=== PATIENT | male | born 1945 | race Caucasian/White ===

== ENCOUNTER → 2019-07-14 13:12 | Outpatient (CLI) | payer MEDICARE, SELFPAY ==
--- NOTE | ~2019-07-14 | XR_ITS ---
EXAMINATION: XR chest 2V EXAM DATE: 07/14/2019 13:22 INDICATION: Acute bronchitis for one month. TECHNIQUE: Frontal and lateral projections of the chest obtained and reviewed. There is no prior rachel dy for comparison. FINDINGS: Scattered punctate granulomata. The lungs are otherwise clear. There are no pleural effusi ons. The cardiomediastinal silhouette is within normal limits. There is no pneumothorax suspected. There is aortic arterial sclerosis. Mild thoracic spondylosis. There may be some left pleural calcif ication. IMPRESSION: No acute cardiopulmonary findings. Reviewed, dictated and finalized at location A.
== END ==
PROVIDERS: PCP Internal Medicine; Visit Provider Internal Medicine
DX: J20.9 Acute bronchitis, unspecified (principal)
CPT/HCPCS: 71046

== ENCOUNTER 2019-10-21 00:21 | Outpatient (CLI) | payer MEDICARE, SELFPAY ==
[2019-10-21 17:34] LABS: SARS-CoV-2 RNA PCR Negative
== END 2019-10-21 00:22 | disposition home or self-care (01) ==
LOC: ANHCOVIDDT 00:21
PROVIDERS: PCP Internal Medicine; Visit Provider Internal Medicine Gastroenterology
DX: Z01.818 Encounter for other preprocedural examination (principal); Z11.59 Encounter for screening for other viral diseases
CPT/HCPCS: 87635; C9803; U0003

== ENCOUNTER 2019-10-23 01:54 | Day surgery (SDC) | payer MEDICARE, SELFPAY ==
[2019-10-16 13:32] VITALS: BMI 23.3
[2019-10-23 06:45] VITALS: BP 101/70; PULSE 105; RESP 18; TEMP 36.6; O2SAT 98
[2019-10-23] MEDS: LACTATED RINGERS 1,000 ML 150 ML IV CONT (06:54)
--- NOTE | 2019-10-23 07:18 | WPDANESEPPF ---
Anes - Initial Pre Proc Eval Procedure: Operation Date: 10/23/19 08:00 Proposed Procedures p Screening Colonoscopy - Robe Martinez MD Date/Time: 10/23/19 07:18 Surgeon: Robe Martinez MD Pre Op Diagnosis: Hx Colon Polyps Patient Data Age: 74 Gender: M Height: 1.65 m Weight: 57.6 kg Last Vital Signs Temp 36.6 C 10/23/19 06:45 Pulse 105 H 10/23/19 06:45 Resp 18 10/23/19 06:45 BP 101/70 10/23/19 06:45 Pulse Ox 98 10/23/19 06:45 Allergies Allergy/AdvReac Type Severity Reaction Status Date / Time triprolidine Allergy Unknown unknown Verified 10/23/19 06:44 pseudoephedrine AdvReac Mild shortness Verified 10/23/19 06:44 of breathe Home Medications Medication Instructions Recorded Confirmed Type ergocalciferol (vitamin D2) 1,250 1,250 mcg PO WEEKLY 90 Days #13 cap 08/24/19 10/16/19 Rx mcg (50,000 unit) capsule levothyroxine 50 mcg tablet 50 mcg PO DAILY 90 Days #90 tablet 08/24/19 10/16/19 Rx pantoprazole 40 mg tablet,delayed 40 mg PO DAILY 90 Days #90 tablet 08/24/19 10/16/19 Rx release simvastatin 40 mg tablet 40 mg PO .in the evening 90 Days 08/24/19 10/16/19 Rx #90 tablet valsartan 160 1 tablet PO DAILY #90 tablet MDD 1 08/27/19 10/16/19 Rx mg-hydrochlorothiazide 12.5 mg tablet tablet Patient hx anesthesia problems: none Family hx anesthesia problems: none PMFSH Past Medical History Medical History (Updated 10/22/19 @ 10:52 by El Scales DO) Chronic GERD CKD (chronic kidney disease) COPD (chronic obstructive pulmonary disease) Essential (primary) hypertension Hyperlipidemia Hypothyroidism Social History Social History (System 07/15/19 @ 10:29 by Lilly Lema) Smoking status: Current every day smoker Second hand tobacco smoke exposure: No Alcohol intake: never Anes - Eval Final PreProcedure Day of Procedure 10/23/19 07:18 Patient weight: normal Heart: regular rate and rhythm Lungs: clear to auscultation and normal air movement Airway: Mallampati scale class II Neurological: alert and oriented Last oral intake: >/= 8 hours ASA classification: III Emergent: no Anesthetic plan: proceed Anesthesia type and monitoring: general GIVS and standard monitoring Informed Consent: The patient's anesthetic plan and its attendant risks and benefits were discussed with the patient/family/POA. Questions were solicited and answers provided to the satisfaction of the patient/family/POA.
--- NOTE | 2019-10-23 08:12 | WPDGICN ---
Assessment and Plan Assessment and plan (1) History of colon polyps: Code(s): Z86.010 - Personal history of colonic polyps Status: Acute Assessment and Plan: Patient has a history of adenomatous colon polyps. For this reason follow-up colonoscopy is advised at this time. Further recommendations will be given after endoscopy. Follow-up in 5 years is suggested. (2) Ventral hernia: Code(s): K43.9 - Ventral hernia without obstruction or gangrene Status: Acute Assessment and Plan: Patient has reducible hernia. Current plan is for observation. Should this become symptomatic than surgical therapy considered. GI Consult Note Consult date/time: 10/23/19 08:12 HPI: Song Land Jr. is a 74 year old male Seen in evaluation at the request of Dr. Candelario Griffin. Patient presents today for screening colonoscopy. Patient has a history of colon polyps in the past. Most recently 2013 at which time he had colonoscopy. Patient's current weight appetite bowel movements are normal. patient has a good appetite is weight has remained stable his he denies any blood in his stools. Family history is noncontributory. Review of Systems Review of Systems: All systems reviewed & are unremarkable except as noted in HPI and below PMFSH Past Medical History Medical History Chronic GERD CKD (chronic kidney disease) COPD (chronic obstructive pulmonary disease) Essential (primary) hypertension Hyperlipidemia Hypothyroidism Social History Social History Smoking status: Current every day smoker Second hand tobacco smoke exposure: No Alcohol intake: never Meds Home Medications and Allergies Home Medications Medication Instructions Recorded Confirmed Type ergocalciferol (vitamin D2) 1,250 1,250 mcg PO WEEKLY 90 Days #13 cap 08/24/19 10/16/19 Rx mcg (50,000 unit) capsule levothyroxine 50 mcg tablet 50 mcg PO DAILY 90 Days #90 tablet 08/24/19 10/16/19 Rx pantoprazole 40 mg tablet,delayed 40 mg PO DAILY 90 Days #90 tablet 08/24/19 10/16/19 Rx release simvastatin 40 mg tablet 40 mg PO .in the evening 90 Days 08/24/19 10/16/19 Rx #90 tablet valsartan 160 1 tablet PO DAILY #90 tablet MDD 1 08/27/19 10/16/19 Rx mg-hydrochlorothiazide 12.5 mg tablet tablet Allergies Allergy/AdvReac Type Severity Reaction Status Date / Time triprolidine Allergy Unknown unknown Verified 10/23/19 06:44 pseudoephedrine AdvReac Mild shortness Verified 10/23/19 06:44 of breathe Vital Signs Vital Signs - 24 hr 10/23/19 06:45 Temperature 36.6 C Pulse Rate 105 H Respiratory Rate 18 Blood Pressure 101/70 Pulse Oximetry 98 Exam Narrative: Exam Narrative: Physical exam reveals patient to be alert. Vital signs stable. HEENT exam unremarkable. Lungs are clear to auscultation and percussion. Heart is without murmur. Abdomen bowel sounds are present soft nontender a ventral hernia is evident. This reduces easily at this time. Digital external rectal exam normal.
[2019-10-23 08:36] VITALS: BP 77/36; PULSE 75; RESP 14; O2SAT 97
[2019-10-23 08:46] VITALS: BP 94/68; PULSE 82; RESP 14; O2SAT 97
[2019-10-23 08:56] VITALS: BP 108/74; PULSE 84; RESP 14; O2SAT 97
[2019-10-23 09:06] VITALS: BP 114/74; PULSE 85; RESP 14; O2SAT 97
== END 2019-10-23 09:26 | disposition home or self-care (01) ==
PROVIDERS: PCP Internal Medicine; Visit Provider Internal Medicine Gastroenterology
PROC: 0DJD8ZZ Inspection of Lower Intestinal Tract, Via Natural or Artificial Opening Endoscopic (ICD-10-PCS; CPT 45378; principal; 2019-10-23 08:00)
DX: Z12.11 Encounter for screening for malignant neoplasm of colon (principal); Z86.010 Personal history of colon polyps; K57.30 Diverticulosis of large intestine without perforation or abscess without bleeding; K64.8 Other hemorrhoids; K43.9 Ventral hernia without obstruction or gangrene; I12.9 Hypertensive chronic kidney disease with stage 1 through stage 4 chronic kidney disease, or unspecified chronic kidney disease; N18.9 Chronic kidney disease, unspecified; K21.9 Gastro-esophageal reflux disease without esophagitis; J44.9 Chronic obstructive pulmonary disease, unspecified; E78.5 Hyperlipidemia, unspecified; E03.9 Hypothyroidism, unspecified; F17.200 Nicotine dependence, unspecified, uncomplicated; Z79.899 Other long term (current) drug therapy
CPT/HCPCS: G0105; 87635; C9803; J2704; J7120; U0003

== ENCOUNTER 2019-11-20 14:46 | Outpatient (CLI) | payer MEDICARE, SELFPAY ==
--- NOTE | ~2019-11-20 | CT_ITS ---
EXAMINATION: CT abdomen pelvis wo/w con EXAM DATE: 11/20/2019 15:49 INDICATION: Hematuria. TECHNIQUE: Spiral CT of the abdomen and pelvis was performed without contrast. The patient was then injected with small bolus intravenous Omnipaque 350, followed by delay of approximately 10 minutes to allow collecting system to opacify. A post contrast scan abdomen and pelvis was performed during inj ection of remaining contrast. A total of 130 cc intravenous contrast was administered. The dose-michelle th product (DLP) for this examination was 552.30 mGy-cm. The exposure was tailored according to dinesh ent size (auto mA exposure control), and iterative reconstruction (ASIR) was used as additional dose reduction technique. There is no prior study for comparison. FINDINGS: There is a 1.2 cm right renal partially exophytic cyst. Lobular left liver lobe cyst measur ing 5.4 cm. The kidneys enhance symmetrically. There are no suspicious renal lesions. The calyces and opacified portions of ureters are unremarkable, without filling defects or focal suspicious stric tures. There is weblike linear nodular soft tissue filling defect at the bladder base projecting int o the bladder, portion of which is contiguous to the mildly enlarged prostate. This is atypical appea chiquis for transitional cell cancer but recommend correlation with cystoscopy for further evaluation. The liver, spleen, adrenal glands and pancreas are unremarkable. Gallbladder is unremarkable. No bi liary obstruction. There is no retroperitoneal or pelvic lymphadenopathy. There is extensive scatt ered arterial sclerotic disease. There is large upper abdominal midline containing nonobstructed loop of transverse colon. The appendix is normal. The stomach and small bowel are unremarkable. There is moderate scattered co lonic diverticulosis. There is no adjacent inflammatory change to suggest diverticulitis. There is e xpected amount of colonic stool. No free intraperitoneal gas. Small pericardial effusion. There i s moderate basilar emphysema. The lung bases are unremarkable. There are no osteoblastic or osteoly tic lesions identified. IMPRESSION: 1. Bladder base linear nodular weblike filling defect, could be trabeculation/scarring but recommend cystoscopy to exclude transitional cell cancer. 2. Large upper abdominal midline hernia containing nonobstructed transverse colon loop. 3. Moderate colonic diverticulosis. 4. Moderate emphysema. 5. Small pericardial effusion. Reviewed, dictated and finalized at location A. IMPRESSION: 1. Bladder base linear nodular weblike filling defect, could be trabeculation/ scarring but recommend cystoscopy to exclude transitional cell cancer. 2. Large upper abdominal midline hernia containing nonobstructed transverse co feliciano loop. 3. Moderate colonic diverticulosis. 4. Moderate emphysema. 5. Small pericardial effusion.
[2019-11-20 15:26] LABS: Estimated Glomerular Filt Rate > 60
== END 2019-11-20 14:47 | disposition home or self-care (01) ==
PROVIDERS: PCP Internal Medicine; Visit Provider Internal Medicine
DX: R31.9 Hematuria, unspecified (principal); K57.90 Diverticulosis of intestine, part unspecified, without perforation or abscess without bleeding; J43.9 Emphysema, unspecified; I31.3 Pericardial effusion (noninflammatory)
CPT/HCPCS: 36415; 74178; Q9967

== ENCOUNTER 2020-05-06 11:04 | Outpatient (CLI) | payer MEDICARE, SELFPAY ==
--- NOTE | ~2020-05-06 | XR_ITS ---
EXAMINATION: XR abdomen obstructive series DATE: 05/06/2020 11:33 INDICATION: Abdominal distention. TECHNIQUE: Supine and upright views of the abdomen. FINDINGS: No prior studies for comparison. The visualized lung parenchyma is normal.. There is a nonobstructive bowel gas pattern. Gas and stool are seen throughout the colon to the level of the rectum. There is no free air. There is advanced l umbar spondylosis with levoscoliosis. There is atherosclerosis of the aorta. There are scattered calc ified granulomas in the lung parenchyma. IMPRESSION: 1. No acute abdominal abnormality. Reviewed, dictated and finalized at location A. 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
--- NOTE | ~2020-05-06 | CT_ITS ---
EXAMINATION: CT lung screening DATE: 05/06/2020 11:43 INDICATION: Lung cancer screening TECHNIQUE: Computed tomography (CT) of the chest was performed without intravenous contrast. The dose -length product was 69.02 mGy-cm. Automated exposure control and iterative reconstruction technique w ere employed. COMPARISON: None FINDINGS: Small pericardial effusion. No significant pleural effusion. There is extensive atheroscler osis of the aorta and coronary arteries. No significant pleural effusion. There is a 5.8 cm liver cys t. There is a ventral abdominal wall hernia containing nonobstructed bowel. There are multiple bilate ral calcified granulomas. There is emphysema. There is a 6 mm subsolid 6 mm groundglass nodule left u pper lobe, image 47. There is a 4 mm fissural nodule on the right, image 78. There is a 7 mm some belinda id pleural-based nodule, image 41 there is adjacent pleural thickening. Mild thoracic spondylosis. Th ere are pleural calcifications in the left upper thorax. There is an 11 mm left lower lobe nodule, im age 82 with adjacent peribronchial nodularity. IMPRESSION: 1. Lung Rads category 4A, suspicious. Recommend follow-up low dose CT in 3 months or pet/CT. Reviewed, dictated and finalized at location A. GER PROGRAMMING IMPRESSION: 1. Lung Rads category 4A, suspicious. Recommend follow-up low dose CT in 3 yogesh hs or pet/CT.
== END 2020-05-06 11:05 | disposition home or self-care (01) ==
PROVIDERS: PCP Internal Medicine; Visit Provider Internal Medicine
DX: Z12.2 Encounter for screening for malignant neoplasm of respiratory organs (principal); R14.0 Abdominal distension (gaseous); Z87.891 Personal history of nicotine dependence; R91.8 Other nonspecific abnormal finding of lung field
CPT/HCPCS: 71271; 74019

== ENCOUNTER 2020-05-17 13:24 | Outpatient (CLI) | payer MEDICARE, SELFPAY ==
--- NOTE | ~2020-05-17 | PE_ITS ---
EXAMINATION: PET skull to mid thigh DATE: 05/17/2020 15:43 INDICATION: Pulmonary nodules. TECHNIQUE: Blood glucose level was 96 mg/dL. 9.788 mCi of 18-fluorodeoxyglucose (18-FDG) was administ ered i.v. Low dose computed tomography (CT) images were acquired from the base of the brain to the pr oximal thighs for attenuation correction and anatomic localization. Automated exposure control was em ployed. Dose-length product (DLP) was 266 mGy-cm. Positron emission tomography (PET) images were acqu ired in the same distribution. COMPARISON: Chest CT 05/06/2020 FINDINGS: Head/neck: There are no pathologically enlarged lymph nodes. Chest: There is mild emphysema. There is mild scarring at left lung apex. Calcified pulmonary nodules and calcified hilar and mediastinal lymph nodes are consistent with old granulomatous disease. There is a 4 mm nodule in right lower lobe without increased activity. There is a 2.4 x 1.5 cm nodule in l eft lower lobe with air bronchograms, architectural distortion, and bronchiectasis with maximum SUV o f 1.6. There are calcified pleural plaques on the left. There is a 7 mm pleural-based nodule in left upper lobe without increased activity. No pleural effusion. The heart size is normal. There are coron woody artery calcifications. There is a chronic small pericardial effusion. There is bulky calcified at herosclerosis in the proximal subclavian arteries and right common carotid artery. Abdomen/pelvis/proximal thighs: There is a 5.6 cm cyst in the liver. The gallbladder is normal. Calci fications in the spleen are consistent with old granulomatous disease. The pancreas, adrenal glands, and left kidney are normal. There is mild right hydronephrosis and hydroureter. There is a 1.6 cm cys t in right kidney. There is diffuse bladder wall thickening, likely secondary to chronic outlet obstr uction from the moderately enlarged prostate. There is diverticulosis of the colon without evidence o f diverticulitis. There are no dilated loops of bowel. There is a supraumbilical ventral hernia conta ining nonobstructed transverse colon. There is bulky calcified atherosclerosis in the common femoral arteries. There are no pathologically enlarged lymph nodes. There is no free intraperitoneal fluid. IMPRESSION: 1. Pulmonary nodules without increased activity, probably benign. Noncontrast low-dose chest CT is re commended in 6 months. 2. Mild right hydronephrosis and hydroureter, new from 11/20/2019. 3. Supraumbilical ventral hernia containing nonobstructed transverse colon. Reviewed, dictated and finalized at location B. UTIVE MANAGER IMPRESSION: 1. Pulmonary nodules without increased activity, probably benign. Noncontrast l ow-dose chest CT is recommended in 6 months. 2. Mild right hydronephrosis and hydroureter, new from 11/20/2019. 3. Supraumbilical ventral hernia containing nonobstructed transverse colon.
[2020-05-17 14:09] LABS: Glucose Point of Care 96 (65-105)
== END 2020-05-17 13:25 | disposition home or self-care (01) ==
LOC: ANHIMG 13:29
PROVIDERS: PCP Internal Medicine; Visit Provider Internal Medicine
DX: R91.8 Other nonspecific abnormal finding of lung field (principal); N13.30 Unspecified hydronephrosis; N13.4 Hydroureter; K43.9 Ventral hernia without obstruction or gangrene
CPT/HCPCS: 78815; A9552

== ENCOUNTER → 2020-06-23 00:52 | Outpatient (CLI) | payer MEDICARE, SELFPAY ==
[2020-06-23 20:38] LABS: SARS-CoV-2 RNA PCR Negative
== END ==
PROVIDERS: PCP Internal Medicine; Visit Provider Urology
DX: Z01.812 Encounter for preprocedural laboratory examination (principal); Z20.822 Contact with and (suspected) exposure to COVID-19
CPT/HCPCS: C9803; U0003; U0005

== ENCOUNTER 2020-06-23 10:20 | Outpatient (CLI) | payer MEDICARE, SELFPAY ==
--- NOTE | 2020-06-23 10:30 | ECG_ITS ---
Measurements Intervals [place] Rate: 91 P: 72 RI: 152 QRS: 67 QRSD: 97 T: 74 QT: 371 QTc: 457 Interpretive Statements SINUS RHYTHM INCOMPLETE RIGHT BUNDLE BRANCH BLOCK BASELINE ARTIFACT- I, II, III, AVR, AVL, AVF, V1-V6 BORDERLINE ECG Electronically Signed On 06-23-2020 11:06:28 WASH TEST CHECKER by Babar Kaufman D.O.
[2020-06-23 11:35] LABS: Anion Gap 3 mmol/L (8-16); Blood Urea Nitrogen 23 mg/dL (9-20); Calcium 8.5 mg/dL (8.4-10.2); Carbon Dioxide 35 mmol/L (22-30); Chloride 104 mmol/L (98-107); Estimated Glomerular Filt Rate > 60; Glucose 131 mg/dL (75-110); Potassium 2.8 mmol/L (3.4-5.0); Sodium 142 mmol/L (137-145)
== END 2020-06-23 10:21 | disposition home or self-care (01) ==
LOC: ANHSURGERY 10:21
PROVIDERS: Anesthesiology; PCP Internal Medicine; Visit Provider Urology
DX: Z01.812 Encounter for preprocedural laboratory examination (principal); I10 Essential (primary) hypertension; I45.10 Unspecified right bundle-branch block
CPT/HCPCS: 36415; 80048; 93005

== ENCOUNTER 2020-06-24 01:27 | Day surgery (SDC) | payer MEDICARE, SELFPAY ==
[2020-06-22 15:07] VITALS: BMI 21.6
[2020-06-24] VITALS (13 sets, daily range): BP systolic 143–183; BP diastolic 59–110; PULSE 78–108; RESP 14–20; TEMP 36.6–37; O2SAT 92–100
--- NOTE | ~2020-06-24 | XR_ITS ---
EXAMINATION: XR fluoroscopy no charge DATE: 06/24/2020 20:32 INDICATION: Hematuria. TECHNIQUE: A single intraoperative fluoroscopic view of the abdomen was obtained. I was not present. Fluoroscopy exposure time was 3 seconds. COMPARISON: PET/CT 05/17/2020 FINDINGS: There are no dilated loops of bowel. IMPRESSION: 1. Normal bowel gas pattern. Reviewed, dictated and finalized at location A. 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
--- NOTE | 2020-06-24 14:51 | WPDANESEPPF ---
Anes - Initial Pre Proc Eval Procedure: Operation Date: 06/24/20 12:30 Proposed Procedures p Cystoscopy, Bilateral Retrograde Pyelogram With Bladder Biopsy - Javier Yeung MD Date/Time: 06/24/20 14:51 Surgeon: Javier Yeung MD Pre Op Diagnosis: Hematuria Dysuria Patient Data Age: 75 Gender: M Height: 5 ft 5 in Weight: 58.97 kg Allergies Allergy/AdvReac Type Severity Reaction Status Date / Time triprolidine Allergy Unknown unknown Verified 06/24/20 14:50 pseudoephedrine AdvReac Mild shortness Verified 06/24/20 14:50 of breathe Home Medications Medication Instructions Recorded Confirmed Type finasteride 5 mg tablet 5 mg PO DAILY 12/28/19 06/22/20 History ergocalciferol (vitamin D2) 1,250 1,250 mcg PO WEEKLY 90 Days #13 cap 02/15/20 06/22/20 Rx mcg (50,000 unit) capsule levothyroxine 75 mcg tablet 75 mcg PO DAILY 90 Days #90 tablet 02/15/20 06/22/20 Rx pantoprazole 40 mg tablet,delayed 40 mg PO DAILY 90 Days #90 tablet 02/15/20 06/22/20 Rx release simvastatin 40 mg tablet 40 mg PO QPM 90 Days #90 tablet 02/15/20 06/22/20 Rx valsartan 160 1 tablet PO DAILY #90 tablet MDD 1 02/15/20 06/22/20 Rx mg-hydrochlorothiazide 12.5 mg tablet tablet Patient hx anesthesia problems: none Family hx anesthesia problems: none PMFSH Past Medical History Medical History BPH NOS w ur obs/LUTS Chronic GERD CKD (chronic kidney disease) COPD (chronic obstructive pulmonary disease) Essential (primary) hypertension Hyperlipidemia Hypothyroidism Structural abnormality of bladder Social History Social History Smoking packs per day: 1 Smoking cigarettes per day: 20.0 Years smoked: 50 Smoking pack-years: 50.00 Smoking status: Current every day smoker Tobacco type: cigarettes Second hand tobacco smoke exposure: No Alcohol intake: never Living arrangements: with family Spiritual care concerns: No Anes - Eval Final PreProcedure Day of Procedure 06/24/20 14:51 Patient weight: normal Heart: regular rate and rhythm Lungs: decreased breath sounds Airway: Mallampati scale class II Neurological: other (alert) Last oral intake: >/= 8 hours ASA classification: III Emergent: no Anesthetic plan: proceed Anesthesia type and monitoring: general LMA and standard monitoring Informed Consent: The patient's anesthetic plan and its attendant risks and benefits were discussed with the patient/family/POA. Questions were solicited and answers provided to the satisfaction of the patient/family/POA.
--- NOTE | 2020-06-24 15:14 | WPDHPUPDATE1 ---
History and Physical Update Update Date/Time: 06/24/20 15:14 History and Physical has been reviewed, including an updated exam of the patient. There are NO changes in the patient's condition. Risks, benefits, and alternatives have been discussed and questions answered. Patient agrees to proceed with procedure.
[2020-06-24] MEDS: ceFAZolin 2 GM/D5W 50 ML 2 GM/50 ML BAG IVPB (15:17)
[2020-06-24] MEDS: LACTATED RINGERS 1,000 ML 30 ML IV CONT (15:20)
[2020-06-24] MEDS: LIDOCAINE HCL 2% GEL UROJET 10 ML PKG MUCOUS MEM (15:35)
[2020-06-24 15:53] LABS: Potassium 2.8 mmol/L (3.4-5.0)
[2020-06-24] MEDS: fentaNYL CITRATE INJ (*CRX) 100 MCG/2 ML VIAL 25 MCG IV PUSH ×4 (16:11→16:44)
--- NOTE | 2020-06-24 16:14 | PM.PROC ---
Procedure Note - Detailed Date of procedure: 06/24/20 Pre-op diagnosis: Hematuria Dysuria Post-op diagnosis: same Procedure performed: Cysto, TURP Description of procedure: Patient is brought to the operatory was prepped draped in routine sterile fashion while in dorsal lithotomy position. 2% lidocaine jelly was introduced injury filling of the [place] appropriate. At time. LMA anesthetic was administered per the anesthesia department. Cystoscopy is undertaken with a 21 F rigid cystoscope. 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 His bladder is did trabeculated and has a very small capacity. I could not identify the ureteral orifices due to the trabeculation and this necrotic tissue encroaching above the bladder neck. Using a 24 F resectoscope and a loop electrode I did have extensive circumferential resection which essentially amounted to a channel TURP. The base of this resected site of cauterized with a rollerball electrode. Chips were evacuated with an Ellik evacuator and a 22 F hematuria catheter was placed to continuous irrigation. Blood loss was less than 25 cc. Patient was taken recovery room good condition. Anesthesia: GLMA Surgeon: Javier Yeung MD Drains: Yes (222F hematuria catheter) Packing: No Pathology: yes (Prostate tissue) Complications: None Condition: stable Disposition: PACU
--- NOTE | 2020-06-24 16:15 | SUR.PHASEI ---
RN called to the OR room 4 to report critical K+ of 2.8.
[2020-06-24] MEDS: HYOSCYAMINE SULFATE 0.125 MG TABLET PO (16:20)
--- NOTE | 2020-06-24 18:00 | ADMGEN ---
This patient, Song Land Jr., was admitted to Medical Room 246-01. Patient/family oriented to hospital policies and general routines including ID bracelet, bed and alarms, visiting hours, pain management, procedures, bathroom and other care routines, personal items, smoking policy, room service/diet, and visiting hours. Information on how to activate the Rapid Response Team has been discussed. Patient/Family are encouraged to report perceived risks to care and to ask questions if they do not understand what they are told or what they should do.
[2020-06-24] MEDS: DOCUSATE SODIUM 100 MG CAPSULE PO (20:06)
[2020-06-24] MEDS: SIMVASTATIN 20 MG TABLET 40 MG PO (20:07)
[2020-06-25 02:17] VITALS: BP 103/59; PULSE 90; RESP 20; TEMP 36.8; O2SAT 94
[2020-06-25 06:17] VITALS: BP 103/59; PULSE 90; RESP 20; TEMP 36.8; O2SAT 94
[2020-06-25] MEDS: LEVOTHYROXINE SODIUM 75 MCG TABLET PO (07:06)
[2020-06-25 08:00] VITALS: BP 145/69; PULSE 92
[2020-06-25] MEDS: VALSARTAN 160 MG TABLET PO (08:15)
[2020-06-25] MEDS: PANTOPRAZOLE 40 MG TABLET PO (08:15)
[2020-06-25] MEDS: POTASSIUM CHLORIDE 20 MEQ PACKET (FOR LIQUID) 40 MEQ PO ×2 (08:15→10:14)
[2020-06-25] MEDS: DOCUSATE SODIUM 100 MG CAPSULE PO (08:15)
[2020-06-25] MEDS: hydroCHLOROthiazide 12.5 MG CAPSULE PO (08:15)
[2020-06-25] MEDS: FINASTERIDE 5 MG TABLET PO (08:15)
[2020-06-25 09:09] LABS: Anion Gap 4 mmol/L (8-16); Blood Urea Nitrogen 18 mg/dL (9-20); Calcium 8.3 mg/dL (8.4-10.2); Carbon Dioxide 35 mmol/L (22-30); Chloride 103 mmol/L (98-107); Estimated CRCL calculation 36 ml/min; Estimated Glomerular Filt Rate 54; Glucose 124 mg/dL (75-110); Potassium 3.1 mmol/L (3.4-5.0); Sodium 142 mmol/L (137-145)
[2020-06-25 10:17] VITALS: BP 137/70; PULSE 98; RESP 20; TEMP 37.1; O2SAT 96
--- NOTE | 2020-06-25 10:51 | WPDANESPN ---
Anes - Prog Note Post-Op Date/Time: 06/25/20 10:51 Cardiovascular status: normal Respiratory status: normal Airway patency: baseline Mental status: baseline Post-Op hydration status: normal Vital Signs: Last Vital Signs Temp 37.1 C 06/25/20 10:17 Pulse 98 06/25/20 10:17 Resp 20 06/25/20 10:17 BP 137/70 06/25/20 10:17 Pulse Ox 96 06/25/20 10:17 Pain Score (VAS): 05/08 I/O: Intake & Output 06/24/20 06/25/20 06/25/20 23:59 07:59 15:59 Intake Total 250 390 680 Output Total 5345 750 50 Balance -2024 Laboratory Tests 06/25/20 08:48 06/24/20 06/25/20 15:20 08:48 Sodium 142 Potassium 2.8 L* 3.1 L Chloride 103 Carbon Dioxide 35 H Anion Gap 4 L BUN 18 Creatinine 1.30 Estim Creat Clear Calc 36 Estimated GFR 54 L Glucose 124 H Calcium 8.3 L Patient Feedback: Patient satisfied with anesthetic care.
== END 2020-06-25 11:27 | disposition home or self-care (01) ==
LOC: ANHSURGERY 16:40 → ANH2MED 18:01
PROVIDERS: Urology; PCP Internal Medicine; Visit Provider Urology
PROC: (CPT 52352; principal; 2020-06-24 12:30)
DX: C61 Malignant neoplasm of prostate (principal); R31.9 Hematuria, unspecified; I12.9 Hypertensive chronic kidney disease with stage 1 through stage 4 chronic kidney disease, or unspecified chronic kidney disease; N18.9 Chronic kidney disease, unspecified; E78.5 Hyperlipidemia, unspecified; E03.9 Hypothyroidism, unspecified; K21.9 Gastro-esophageal reflux disease without esophagitis; F17.210 Nicotine dependence, cigarettes, uncomplicated
CPT/HCPCS: 52601; 36415; 80048; 84132; 88305; 88342; 93005; A9270; C1758; C1769; C9803; J0690; J2405; J2704; J3010; J7120; Q9966; U0003; U0005

== ENCOUNTER 2020-07-06 07:55 | Outpatient (CLI) | payer MEDICARE, SELFPAY ==
--- NOTE | ~2020-07-06 | CT_ITS ---
EXAMINATION: CT abdomen pelvis wo/w con EXAM DATE: 07/06/2020 08:51 INDICATION: Prostate cancer by direct extension from urinary bladder. TECHNIQUE: Spiral CT of the abdomen and pelvis was performed without contrast. The patient was then injected with small bolus intravenous Omnipaque 350, followed by delay of approximately 10 minutes to allow collecting system to opacify. A post contrast scan abdomen and pelvis was performed during inj ection of remaining contrast. A total of 130 cc intravenous contrast was administered. The dose-michelle th product (DLP) for this examination was 524.55 mGy-cm. The exposure was tailored according to dinesh ent size (auto mA exposure control), and iterative reconstruction (ASIR) was used as additional dose reduction technique. Correlation was made with PET/CT 05/17/2020. FINDINGS: No nephrolithiasis. There is mild to moderate right, mild left-sided hydroureteronephrosis to the ureterovesicular junctions. The ureters and bladder are not opacified at time of imaging. T he kidneys enhance symmetrically. There are no suspicious renal lesions. There is severe bladder wal l trabeculation, enhancing mucosa, extensive heterogeneous thickening particularly at the bladder bas e and along the prosthetic urethra. Large defect probably from either prostatectomy and/or TURP. Over all, amount of bladder wall thickening suspected to have increased compared to April. There is a segment 4 liver cyst measuring 5.6 cm with loculations. There is bilateral adrenal gland h yperplasia. Pancreas is unremarkable. Gallbladder is unremarkable. No biliary obstruction. There i s no retroperitoneal or pelvic lymphadenopathy. There is extensive scattered arterial sclerotic dis ease with regions of severe stenosis of the common femoral arteries bilaterally. Again there is midli ne abdominal wall hernia relatively narrow mouth for the size of the hernia, containing nonobstructed transverse colon. There is moderate amount of generalized body wall fat stranding and mesenteric fat stranding. The jerome endix is normal. The stomach and small bowel are unremarkable. There is expected amount of colonic stool. Scattered moderate amount of colonic diverticulosis. Sensitivity for diverticulitis decreased from the intra-abdominal fat stranding. No free intraperitoneal gas. Heart is normal in size. There is persistent small pericardial effusion. Interval development of smal l right pleural effusion. Development of several regions right basilar subsegmental atelectasis. [employer] gibran emphysema and hyperinflation. Left basilar granuloma. There are no osteoblastic or osteolytic le sions identified. Mild to moderate levoscoliosis. IMPRESSION: 1. Severe bladder wall irregular thickening particularly inferiorly, and within prostatectomy or TUR P defect, with significant progression suspected. Cancer. 2. Mild to moderate right, mild left hydroureteronephrosis to the UVJs. 3. Moderate-sized supra umbilical hernia containing nonobstructed transverse colon. 4. Scattered colonic diverticulosis. 5. Regions of severe bilateral common femoral stenosis. 6. Development of small right pleural effusion and right basilar subsegmental atelectasis. 7. Small pericardial effusion. Reviewed, dictated and finalized at location B. IMEDIA AUTHOR IMPRESSION: 1. Severe bladder wall irregular thickening particularly inferiorly, and withi n prostatectomy or TURP defect, with significant progression suspected. Cancer. 2. Mild to moderate right, mild left hydroureteronephrosis to the UVJs. 3. Moderate-sized supra umbilical hernia containing nonobstructed transverse c olon. 4. Scattered colonic diverticulosis. 5. Regions of severe bilateral common femoral stenosis. 6. Development of small right ple
--- NOTE | ~2020-07-06 | NM_ITS ---
EXAMINATION: NM bone scan whole body EXAM DATE: 07/06/2020 11:58 INDICATION: Cancer involving prostate by direct extension from bladder. TECHNIQUE: Bone scan was performed after injection of 25.7 mCi technetium 99 HDP and planar whole bod y images were obtained. COMPARISON: CT abdomen pelvis same date FINDINGS: Mild to moderate lumbar levoscoliosis. Physiologic renal activity with prominent calyces, h ydronephrosis. Correlate with CT scan same day. No focal suspicious regions of increased osseous acti vity or photopenia. IMPRESSION: No evidence of osseous metastatic disease. Reviewed, dictated and finalized at location B. TRACER
== END 2020-07-06 07:56 | disposition home or self-care (01) ==
LOC: ANHIMG 07:58
PROVIDERS: PCP Internal Medicine; Visit Provider Urology
DX: C79.82 Secondary malignant neoplasm of genital organs (principal); N32.9 Bladder disorder, unspecified; N13.30 Unspecified hydronephrosis; K42.9 Umbilical hernia without obstruction or gangrene; K57.90 Diverticulosis of intestine, part unspecified, without perforation or abscess without bleeding; I70.8 Atherosclerosis of other arteries; J90 Pleural effusion, not elsewhere classified; I31.3 Pericardial effusion (noninflammatory)
CPT/HCPCS: 74178; 78306; A9561; Q9967

== ENCOUNTER 2020-07-28 08:04 | Outpatient (CLI) | payer MEDICARE, SELFPAY ==
--- NOTE | 2020-07-28 | ECHO_ITS ---
Patient Info Name: Song Land Age: 75 years : 1945 Gender: Male Ht: 67 in Wt: 127 lbs BSA: 1.64 m2 HR: 85 bpm BP: 152 / 67 mmHg Heart Rhythm: Sinus Rhythm Exam Date: 07/28/2020 8:46 AM Exam Location: [facility] Patient Status: Outpatient Admit Date: 07/28/2020 Staff Ordering Physician: Wilmar Davila DO Health Care Specialist: Luis Gray RDCS, RT Attending Provider: Wilmar Davila DO Referring Physician: Lola RINCON; Exam Type: CA echo doppler color flow Study Info Indications I50.9 - Heart failure, unspecified Complete two-dimensional, color flow and Doppler transthoracic echocardiogram is performed. Strain analysis performed. Summary 1. Complete two-dimensional, color flow and Doppler transthoracic echocardiogram is performed. 2. Strain analysis performed. 3. Global longitudinal strain is borderline at -17 %. 4. Left ventricular chamber dimension is normal. 5. Left ventricular systolic function is normal, estimated at 55-60%. 6. There is no increased left ventricular wall thickness. 7. The left ventricular diastolic function is grade I diastolic dysfunction. 8. Left atrial chamber dimension is mildly enlarged. 9. Right atrial chamber dimension is mildly enlarged. 10. There is moderate aortic valve sclerosis. 11. There is mild mitral valve regurgitation. 12. The mitral valve has calcified annulus. 13. The pericardium appears thickened pericardium. 14. There is small pericardial effusion. Left Ventricle Global longitudinal strain is borderline at -17 %. Left ventricular chamber dimension is normal. Left ventricular systolic function is normal, estimated at 55-60%. There is no increased left ventricular wall thickness. The left ventricular diastolic function is grade I diastolic dysfunction. Right Ventricle Right ventricular chamber dimension is normal. Right ventricular systolic function is normal. Left Atria Left atrial chamber dimension is mildly enlarged. Right Atria Right atrial chamber dimension is mildly enlarged. Atrial Septum Intact interatrial septum visualized by color flow imaging. Aortic Valve The aortic valve is probable trileaflet. There is moderate aortic valve sclerosis. There is no aortic valve stenosis. There is trace aortic valve regurgitation. Pulmonic Valve The pulmonic valve is normal. There is no pulmonic valve stenosis. There is trace pulmonic regurgitation. Mitral Valve The mitral valve has calcified annulus. There is no mitral valve stenosis. There is mild mitral valve regurgitation. Tricuspid Valve The tricuspid valve leaflets are normal. There is no significant tricuspid valve stenosis. There is trace tricuspid valve regurgitation. Pericardium/Pleural The pericardium appears thickened pericardium. There is small pericardial effusion. Inferior Vena Cava Normal inferior vena cava with >50% collapse upon inspiration consistent with normal right atrial pressure, 5 mmHg. Aorta The aortic root size at the sinus of Valsalva is normal. The prox ascending aorta size is normal. Left Ventricular Outflow Tract Name Value Normal LVOT 2D LVOT Diameter 2.0 cm LVOT Doppler
[2020-07-28 08:26] LABS: Basophils Percent Auto 0.4 % (0.2-1.2); Eosinophils Absolute Auto 0.1 K/mm3 (0-0.3); Eosinophils Percent Auto 0.9 % (0-4.4); Hematocrit 32.3 % (42.0-52.0); Hemoglobin 10.4 g/dL (14.0-18.0); Immature Granulocyte Absolute 0.02 K/mm3 (0.00-0.031); Immature Granulocyte Percent A 0.2 % (0-0.5); Lymphocytes Absolute Auto 1.63 K/mm3 (0.9-3.2); Lymphocytes Percent Auto 18.3 % (18.3-44.2); Mean Corpuscular HGB Conc 32.2 g/dl (32-36); Mean Corpuscular Hemoglobin 29.3 pg (26-34); Monocytes Absolute Auto 0.9 K/mm3 (0.1-0.6); Monocytes Percent Auto 10.3 % (2.6-8.5); Neutrophils Absolute Auto 6.2 K/mm3 (1.3-6.7); Neutrophils Percent Auto 69.9 % (45.5-73.1); Platelet Count Result 423 k/mm3 (150-375); Red Blood Count 3.55 M/mm3 (4.6-6.20); Red Cell Distribution Width 15.6 % (11.5-14.5); White Blood Count 8.9 K/mm3 (4.5-10.0)
[2020-07-28 08:53] LABS: Alanine Aminotransferase 25 U/L (4-50); Albumin Level 3.7 g/dL (3.5-5.1); Alkaline Phosphatase 60 U/L (38-126); Anion Gap 6 mmol/L (8-16); Aspartate Amino Transferase 31 U/L (17-59); Bilirubin,Total 0.3 mg/dL (0.2-1.3); Blood Urea Nitrogen 34 mg/dL (9-20); Calcium 8.7 mg/dL (8.4-10.2); Carbon Dioxide 27 mmol/L (22-30); Chloride 106 mmol/L (98-107); Estimated Glomerular Filt Rate 54; Glucose 93 mg/dL (75-110); Potassium 4.2 mmol/L (3.4-5.0); Sodium 139 mmol/L (137-145)
== END 2020-07-28 08:05 | disposition home or self-care (01) ==
PROVIDERS: PCP Internal Medicine; Visit Provider Internal Medicine Medical Oncology
DX: I50.9 Heart failure, unspecified (principal); I31.3 Pericardial effusion (noninflammatory); I51.7 Cardiomegaly; I35.8 Other nonrheumatic aortic valve disorders
CPT/HCPCS: 36415; 80053; 85025; 93306

== ENCOUNTER 2020-11-24 10:27 | Outpatient (CLI) | payer MEDICARE, SELFPAY ==
--- NOTE | ~2020-11-24 | CT_ITS ---
EXAMINATION: CT chest abdomen pelvis w con DATE: 11/24/2020 11:11 INDICATION: Bladder cancer TECHNIQUE: Transaxial computed tomographic images of the chest, abdomen, and pelvis were obtained aft er the administration of 100 cc of Omnipaque 350 intravenous contrast. The dose-length product (DLP) was 416.27 mGy-cm. Automated exposure control and iterative reconstruction technique were employed. COMPARISON: 07/06/2020, 05/06/2020 FINDINGS: CHEST CT: There is mild emphysema. Calcified pulmonary nodules are consistent with old granulomatous disease. T here is an approximately 2.7 x 1.7 cm nodule with air bronchograms, architectural distortion, and bro nchiectasis in the left lower lobe. There has been slight interval increase in size in an approximate ly 1.3 x 0.8 cm solid component at the superolateral aspect of the nodule on image 69. No new pulmona ry nodules are identified. A calcified pleural plaque is noted in left upper lung zone. There is a sm all right pleural effusion. No pneumothorax is identified. No pathologically enlarged thoracic lymph nodes are identified. The heart size is normal. Calcified coronary artery atherosclerosis is noted. ABDOMEN/PELVIS CT: There is a 5.5 cm cyst of the liver. Punctate calcifications in an otherwise normal spleen likely rep resent healed granulomatous disease. The pancreas, gallbladder, and adrenal glands are normal. The le ft kidney is unremarkable. There is a 1.5 cm cyst of the right kidney. There is calcified atheroscler osis of the aorta and many of the other arteries. There are areas of severe stenosis in the common fe moral arteries and proximal superficial femoral arteries. There is unchanged diffuse circumferential wall thickening of the urinary bladder. A previously seen area of irregular bladder wall thickening i s no longer identified. A moderate volume of ascites is present. There is a supraumbilical ventral he rnia containing a short segment of nonobstructed transverse colon and ascites. There is no free intra peritoneal gas or evidence of bowel obstruction. No pathologically enlarged abdominal or pelvic lymph nodes are identified. There is severe lumbar spondylosis. IMPRESSION: 1. Left lower lobe pulmonary nodule with slight increase in size of a solid nodular component, indete rminate. Follow-up CT in three months is recommended. 2. Circumferential bladder wall thickening with the previously described area of irregular thickening no longer identified. 3. Supraumbilical ventral hernia containing ascites and a short segment of nonobstructed transverse c olon. 4. Ascites. Reviewed, dictated and finalized at location A. IMPRESSION: 1. Left lower lobe pulmonary nodule with slight increase in size of a solid nod ular component, indeterminate. Follow-up CT in three months is recommended. 2. Circumferential bladder wall thickening with the previously described area o f irregular thickening no longer identified. 3. Supraumbilical ventral hernia containing ascites and a short segment of nono bstructed transverse colon. 4. Ascites.
[2020-11-24 11:06] LABS: Estimated Glomerular Filt Rate > 60
== END 2020-11-24 10:28 | disposition home or self-care (01) ==
LOC: ANHIMG 10:28
PROVIDERS: PCP Internal Medicine; Visit Provider Internal Medicine Medical Oncology
DX: C67.4 Malignant neoplasm of posterior wall of bladder (principal); R91.8 Other nonspecific abnormal finding of lung field; K40.90 Unilateral inguinal hernia, without obstruction or gangrene, not specified as recurrent; R18.8 Other ascites
CPT/HCPCS: 71260; 74177; Q9967

== ENCOUNTER 2021-01-19 07:46 | Outpatient (CLI) | payer MEDICARE, SELFPAY ==
--- NOTE | ~2021-01-19 | PE_ITS ---
EXAMINATION: PET skull to mid thigh DATE: 01/19/2021 09:52 INDICATION: Bladder cancer TECHNIQUE: 8.3 mCi of 18-fluorodeoxyglucose (18-FDG) was administered i.v. Low dose computed tomograp hy (CT) images were acquired from the base of the brain to the proximal thighs for attenuation correc tion and anatomic localization. Positron emission tomography (PET) images were acquired after injecti on. Images including fused PET/CT images were reconstructed in axial, coronal, and sagittal planes. A utomatic exposure control is employed as a dose reduction technique. COMPARISON: CT dated 11/24/2020 FINDINGS: Head/neck: There is mild mucosal thickening of the right maxillary sinus. There is asymmetry of the right palati ne tonsil/pharyngeal mucosal space with mildly increased FDG uptake. Maximum SUV is 2.9. Otherwise, t here is no significant abnormal FDG uptake. No cervical lymphadenopathy. There is carotid atheroscler osis. Chest: Left lower lobe clustered nodules are reidentified with increasing nodular component. There is mild F DG uptake with maximum SUV of 2.3. There is emphysema. No small right pleural effusion. Heart size is normal. No endobronchial lesions. Calcified pleural plaque reidentified left upper lung zone. No tho racic lymphadenopathy. Small pericardial effusion. There is atherosclerosis of the aorta and coronary arteries. Abdomen/pelvis/proximal thighs: 5.4 cm liver cyst reidentified without abnormal FDG uptake. Gallbladder is distended. There is a supr aumbilical ventral hernia containing nonobstructed colon. There is physiologic uptake in the colon. T here is diffuse atherosclerosis of the abdominal aorta without aneurysm. Colonic diverticulosis witho ut diverticulitis. Bladder is decompressed, although there is persistent circumferential bladder wall thickening. No discrete bladder mass is identified. There is a right renal cyst. There is trace asci iona. No significant lymphadenopathy. Bones/Soft tissues: No hypermetabolic activity. IMPRESSION: 1. Clustered left lower lobe nodules with increasing nodular component. Mild FDG uptake with maximum SUV of 2.3. These nodules are indeterminate. Cannot exclude metastatic disease. 2: Asymmetry of the right palatine tonsils/mucosal space with mild FDG uptake, most likely infectiou s/inflammatory. Neoplasm is less favored. Recommend direct visualization. Reviewed, dictated and finalized at location A. IMPRESSION: 1. Clustered left lower lobe nodules with increasing nodular component. Mild FD G uptake with maximum SUV of 2.3. These nodules are indeterminate. Cannot exclu de metastatic disease. 2: Asymmetry of the right palatine tonsils/mucosal space with mild FDG uptake, most likely infectious/inflammatory. Neoplasm is less favored. Recommend direc t visualization.
[2021-01-19 08:21] LABS: Glucose Point of Care 93 mg/dl (65-105)
== END 2021-01-19 07:47 | disposition home or self-care (01) ==
LOC: ANHIMG 07:51
PROVIDERS: PCP Internal Medicine; Visit Provider Internal Medicine Medical Oncology
DX: Z03.89 Encounter for observation for other suspected diseases and conditions ruled out (principal); C67.9 Malignant neoplasm of bladder, unspecified; R91.8 Other nonspecific abnormal finding of lung field
CPT/HCPCS: 78815; A9552

== ENCOUNTER → 2021-04-04 09:20 | Outpatient (CLI) | payer MEDICARE, SELFPAY ==
[2021-04-04 14:42] LABS: Influenza Control Positive
[2021-04-04 20:27] LABS: SARS-CoV-2 RNA PCR Negative
== END ==
PROVIDERS: PCP Internal Medicine; Visit Provider Internal Medicine
DX: R09.89 Other specified symptoms and signs involving the circulatory and respiratory systems (principal); Z20.822 Contact with and (suspected) exposure to COVID-19
CPT/HCPCS: 87804; C9803; U0003; U0005

== ENCOUNTER 2021-04-04 09:53 | Outpatient (CLI) | payer MEDICARE, SELFPAY ==
--- NOTE | ~2021-04-04 | XR_ITS ---
EXAMINATION: XR chest 2V DATE: 04/04/2021 10:14 INDICATION: Shortness of breath. TECHNIQUE: Frontal and lateral views of the chest were obtained. COMPARISON: Chest 2 views 07/14/2019, PET CT 01/19/2021 FINDINGS: There are moderate-sized right and small left pleural effusions. There are airspace opaciti es at the lung bases. Calcified pulmonary nodules are consistent with old granulomatous disease. Ther e is a calcified pleural plaque on the left. No pneumothorax. The heart size is normal. IMPRESSION: 1. Moderate-sized right and small left pleural effusions. 2. Airspace opacities at the lung bases, consistent with atelectasis versus pneumonia. Reviewed, dictated and finalized at location A. 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 Moderate-sized right and small left pleural effusions. 2. Airspace opacities at the lung bases, consistent with atelectasis versus pne umonia.
== END 2021-04-04 09:54 | disposition home or self-care (01) ==
LOC: ANHIMG 09:59
PROVIDERS: PCP Internal Medicine; Visit Provider Internal Medicine
DX: R06.02 Shortness of breath (principal); J90 Pleural effusion, not elsewhere classified
CPT/HCPCS: 71046

== ENCOUNTER 2021-04-06 14:31 | Inpatient (IN) | payer MEDICARE, SELFPAY ==
[2021-04-06] VITALS (9 sets, daily range): BP systolic 77–116; BP diastolic 45–93; PULSE 81–100; RESP 16–22; TEMP 36.5–36.9; O2SAT 91–99; BMI 22.4
--- NOTE | ~2021-04-06 | US_ITS ---
EXAMINATION: US venous doppler [facility] DATE: 04/07/2021 11:56 INDICATION: Lower limb swelling. TECHNIQUE: Grayscale ultrasound images without and with compression and Doppler ultrasound images of the bilateral lower extremity veins were obtained. COMPARISON: None. FINDINGS: The visualized portions of right common femoral vein, profunda (deep) femoral vein, femoral vein, pop liteal vein, peroneal veins, posterior tibial veins, and greater saphenous vein outflow are patent. The visualized portions of left common femoral vein, profunda femoral vein, femoral vein, popliteal v ein, peroneal veins, posterior tibial veins, and greater saphenous vein outflow are patent. IMPRESSION: 1. No deep venous thrombosis. Reviewed, dictated and finalized at location A. 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
--- NOTE | ~2021-04-06 | XR_ITS ---
EXAMINATION: [id number] EXAM DATE: 04/06/2021 17:26 INDICATION: Increasing right pleural effusion. TECHNIQUE: Portable AP frontal chest x-ray was obtained. Comparison is made to prior examination from earlier same date. FINDINGS: Significant interval reduction in size of right pleural effusion following removal of 1 L f luid. There is still small to moderate right pleural effusion. Small left pleural effusion. Adjacent airspace disease at least partly compressive atelectasis. There is no pneumothorax suspected. The car diomediastinal silhouette is prominent but magnified on this AP technique. There is aortic arterioscl erosis. IMPRESSION: 1. No evidence postprocedure pneumothorax. 2. Small to moderate right, small pleural effusion, adjacent atelectasis. 3. Pneumonia not excludable. Reviewed, dictated and finalized at location A. STOS SHINGLE ROOFER
--- NOTE | ~2021-04-06 | US_ITS ---
EXAMINATION: US paracentesis abd w/image DATE: 04/07/2021 15:44 INDICATION: Ascites. TECHNIQUE: The procedure and its risks, benefits, and alternatives were discussed with the patient. P otential risks discussed included bleeding and infection. The skin was prepped and draped in sterile fashion. 1% lidocaine was used for local anesthesia. Under ultrasound guidance, a 5 Fr catheter with trochar was advanced into the ascites in the right lower quadrant. Fluid was aspirated. The catheter was removed, and a dressing was applied. There were no immediate complications. FINDINGS: Ultrasound images demonstrate ascites and the catheter within the fluid. IMPRESSION: 1. Successful ultrasound-guided paracentesis yielding 450 mL of clear, yellow fluid. Reviewed, dictated and finalized at location A. TAL CAMPAIGN FUNDRAISER
--- NOTE | ~2021-04-06 | XR_ITS ---
EXAMINATION: XR chest 2V EXAM DATE: 04/06/2021 15:35 INDICATION: Pleural effusion and bodyaches. TECHNIQUE: Frontal and lateral projections of the chest obtained and reviewed. Comparison is made to prior examination from 04/04/2021. FINDINGS: Cardiac silhouette difficult to evaluate due to the moderate right pleural effusion, with interval increase in size compared to prior study. Small left pleural effusion. There is adjacent ate lectasis. Superimposed pneumonia or edema also possible. No pneumothorax. There is aortic arterioscle rosis. Air-filled transverse colon. IMPRESSION: 1. Increase in size of moderate right pleural effusion. Small pleural effusion. 2. Adjacent atelectasis. Pneumonia or edema not excludable. Reviewed, dictated and finalized at location A. AL HUSBANDRY PROFESSOR IMPRESSION: 1. Increase in size of moderate right pleural effusion. Small pleural effusion . 2. Adjacent atelectasis. Pneumonia or edema not excludable.
--- NOTE | ~2021-04-06 | US_ITS ---
EXAMINATION: US thoracentesis EXAM DATE: 04/06/2021 17:35 INDICATION: Right pleural effusion. TECHNIQUE: Timeout procedure was performed. I discussed the procedure, its risks and benefits with th e patient. Potential risks discussed included bleeding, infection, and pneumothorax which could poten tially require chest tube. Alternatives were also discussed. The patient understood the risks, was gi joaquina chance to ask questions, and agreed to proceed. The skin was prepped and draped in sterile fashion. 1% lidocaine was used for local anesthesia. Under ultrasound guidance, a 5 Fr catheter with trochar was advanced into the right pleural effusion. Flui d was aspirated including syringe for pH. The catheter was removed, and a dressing was applied. There were no immediate complications. Patient was sent for postprocedure chest x-ray. FINDINGS: Ultrasound images demonstrate a right pleural effusion adequate in size for performing thoracentesis. IMPRESSION: 1. Successful ultrasound-guided thoracentesis yielding 1000 mL of patsy-colored fluid. Reviewed, dictated and finalized at location A. O TECHNICIAN IMPRESSION: 1. Successful ultrasound-guided thoracentesis yielding 1000 mL of patsy-colore d fluid.
--- NOTE | ~2021-04-06 | CT_ITS ---
EXAMINATION: CT abdomen pelvis w con INDICATION: Diarrhea, abdominal distention TECHNIQUE: Computed tomographic images of the abdomen and pelvis were obtained after the administrati on of 100 cc of Omnipaque 350 intravenous contrast. The dose-length product (DLP) was 297.31 mGy-cm. Automated exposure control and iterative reconstruction technique were employed. COMPARISON: 11/24/2020 FINDINGS: There are moderate-sized pleural effusions with atelectasis versus pneumonia of the lower l obes. The heart size is normal. There is a 5.2 cm cyst of the right hepatic lobe. Punctate calcificat ions in an otherwise normal spleen likely represent healed granulomatous disease. The pancreas, gallb ladder, and adrenal glands are normal. There is a moderate volume of abdominal and pelvic ascites. Th e kidneys cysts of the kidneys measure up to 1.6 cm on the right. There is calcified atherosclerosis of the aorta and many of the other arteries. Atherosclerosis of the bilateral common femoral arteries causing severe stenosis. There is mild circumferential wall thickening of the urinary bladder. There is a midline epigastric hernia containing fat, ascites, and a portion of the nonobstructed transvers e colon. There is no free intraperitoneal gas. There is moderate lumbar spondylosis. IMPRESSION: 1. Moderate volume of abdominal pelvic ascites. 2. Midline epigastric hernia containing nonobstructed transverse colon. 3. Moderate pleural effusions with atelectasis and pneumonia of the visualized lower lobes. 4. Areas of severe atherosclerosis. Reviewed, dictated and finalized at location A. GAGE OR LOAN UNDERWRITER
--- NOTE | ~2021-04-06 | CT_ITS ---
EXAMINATION: CT brain wo con EXAM DATE: 04/09/2021 12:29 INDICATION: Confusion, agitation. TECHNIQUE: Spiral CT of the head was performed without contrast. Axial, coronal and sagittal images were reviewed. The dose-length product (DLP) for this examination was 832.33 mGy-cm. The exposure w as tailored according to patient size, and iterative reconstruction (ASIR) was used as additional dos e reduction technique. There is no prior study for comparison. FINDINGS: There is no acute intraparenchymal hemorrhage. No evidence of intraparenchymal brain mass lesion. No evidence of acute infarction. Please note that initial head CT has limited sensitivity f or small or acute infarctions. There is mild periventricular and subcortical hypodensity, nonspecific but probably related to small vessel ischemic disease. There is moderate prominence of the sulci a nd ventricles related to cerebral atrophy. There is intracranial carotid arteriosclerosis. There a re no extra-axial collections. There is no mass effect or midline shift. The orbits are unremarkabl e. Soft tissue is unremarkable. The visualized sinuses and mastoid air cells are well aerated. IMPRESSION: 1. No acute intracranial findings. 2. Chronic age related findings. Reviewed, dictated and finalized at location A. ITY ASSURANCE INTERN
--- NOTE | ~2021-04-06 | XR_ITS ---
EXAMINATION: XR chest 1V portable EXAM DATE: 04/09/2021 12:39 INDICATION: Hypoxia, pneumonia, effusions . TECHNIQUE: Portable AP frontal chest x-ray was obtained. Comparison is made to prior examination from 04/06/2021. FINDINGS: Elevated right hemidiaphragm and probably moderate pleural effusion. Adjacent multisegmenta l atelectasis. Smaller left pleural effusion. There may be bilateral pneumonia. There is no pneumotho rax suspected. There is aortic arteriosclerosis. Cardiomediastinal silhouette is normal. IMPRESSION: 1. Moderate right, small pleural effusions, adjacent atelectasis. 2. Possible bilateral pneumonia. Reviewed, dictated and finalized at location A. TENANCE SERVICE TECHNICIAN
--- NOTE | ~2021-04-06 | CT_ITS ---
EXAMINATION: CT chest high resolution wo co DATE: 04/07/2021 12:14 INDICATION: Pleural effusion TECHNIQUE: Computed tomography (CT) of the chest was performed without intravenous contrast. The dose -length product (DLP) was 152.89 mGy-cm. Automated exposure control and iterative reconstruction tech nique were employed. COMPARISON: 05/06/2020 FINDINGS: There are moderate-sized pleural effusions. There is no pneumothorax. There are dependent a irspace opacities in the lungs. More focal consolidation is seen dependently in the lower lobes. Ther e is near complete opacification of the right lower lobe. Again seen is a 2.8 cm left lower lobe nodu le with air bronchograms and associated architectural distortion which is not significantly changed. No pathologically enlarged thoracic lymph nodes are identified. The heart size is normal. There is ca lcified coronary artery atherosclerosis ascites is noted in the visualized upper abdomen. There is al so a chronic epigastric hernia containing fat, ascites, and a portion of the transverse colon. There is a 5 cm cyst of the right hepatic lobe. IMPRESSION: 1. Moderate-sized pleural effusions. 2. Near complete opacification of the right lower lobe and moderate opacification of the left lower l obe, consistent with atelectasis and pneumonia. 3. Ascites of the visualized upper abdomen. 4. Epigastric hernia containing fat, ascites, and a portion of the transverse colon. Reviewed, dictated and finalized at location A. RIOR SYSTEMS CARPENTER IMPRESSION: 1. Moderate-sized pleural effusions. 2. Near complete opacification of the right lower lobe and moderate opacificati on of the left lower lobe, consistent with atelectasis and pneumonia. 3. Ascites of the visualized upper abdomen. 4. Epigastric hernia containing fat, ascites, and a portion of the transverse c olon.
[2021-04-06] MEDS: LACTATED RINGERS 1,000 ML 999 ML IV CONT (15:51)
[2021-04-06 15:57] LABS: Basophils Percent Auto 0.1 % (0.2-1.2); Hematocrit 28.7 % (42.0-52.0); Hemoglobin 9.9 g/dL (14.0-18.0); Immature Granulocyte Absolute 0.08 K/mm3 (0.00-0.031); Immature Granulocyte Percent A 0.5 % (0-0.5); Lymphocytes Absolute Auto 0.26 K/mm3 (0.9-3.2); Lymphocytes Percent Auto 1.7 % (18.3-44.2); Mean Corpuscular HGB Conc 34.5 g/dl (32-36); Mean Corpuscular Hemoglobin 28.8 pg (26-34); Mean Corpuscular Volume 83.4 fl (80-100); Mean Platelet Volume 10.3 fl (7.4-10.4); Monocytes Absolute Auto 1.2 K/mm3 (0.1-0.6); Monocytes Percent Auto 8.2 % (2.6-8.5); Neutrophils Absolute Auto 13.4 K/mm3 (1.3-6.7); Neutrophils Percent Auto 89.5 % (45.5-73.1); Platelet Count Result 373 k/mm3 (150-375); Red Blood Count 3.44 M/mm3 (4.6-6.20)
[2021-04-06 16:11] LABS: Anion Gap 6 mmol/L (8-16); Blood Urea Nitrogen 28 mg/dL (9-20); Calcium 8.1 mg/dL (8.4-10.2); Carbon Dioxide 28 mmol/L (22-30); Chloride 92 mmol/L (98-107); Estimated CRCL calculation 44 ml/min; Estimated Glomerular Filt Rate > 60; Glucose 95 mg/dL (65-110); NT Pro B Type Natriuretic Pept 1620 pg/mL (5-100); Potassium 2.1 mmol/L (3.4-5.0); Sodium 126 mmol/L (137-145)
--- NOTE | 2021-04-06 16:11 | ECG_ITS ---
Measurements Intervals [place] Rate: 89 P: 58 WY: 153 QRS: 15 QRSD: 110 T: 40 QT: 282 QTc: 343 Interpretive Statements SINUS RHYTHM VENTRICULAR PREMATURE COMPLEXES LOW QRS VOLTAGE IN LIMB LEADS INCOMPLETE RIGHT BUNDLE BRANCH BLOCK BORDERLINE T WAVE ABNORMALITY- DIFFUSE LEADS BASELINE ARTIFACT- I, II, III, AVL, AVF, V1, V4-V6 BORDERLINE ECG Electronically Signed On 04-06-2021 20:31:32 LUMBER MOVER by Babar Kaufman D.O.
[2021-04-06] MEDS: POTASSIUM CHLORIDE 20 MEQ PACKET (FOR LIQUID) 60 MEQ PO (16:24)
[2021-04-06] MEDS: ONDANSETRON INJ 4 MG/2 ML VIAL IV PUSH (16:24)
[2021-04-06 16:27] LABS: Anisocytosis 3+ (NORMAL); Burr Cells 3+ (NORMAL); Ovalocytes 2+ (NORMAL); Platelet Estimate Adequate (Adequate); Poikilocytosis 3+ (NORMAL)
[2021-04-06 16:28] LABS: Hypochromasia 2+ (NORMAL)
[2021-04-06 16:32] LABS: Albumin Level 2.9 g/dL (3.5-5.1); Cholesterol 88 mg/dL (0-200); Lactate Dehydrogenase 605 U/L (313-618); Magnesium 1.4 mg/dL (1.6-2.3); Triglycerides 59 mg/dL (<150)
[2021-04-06] MEDS: KCL 20 MEQ/SW 100 ML 100 ML 50 MEQ IVPB (16:39)
[2021-04-06 16:44] LABS: Lactic Acid Reflex 1.9 mmol/L (0.7-2.1); Prothrombin Time 13.4 Seconds (11.1-14.7)
--- NOTE | 2021-04-06 16:48 | ED.SOB ---
HPI - SOB/Dyspnea General Chief Complaint: Shortness of Breath/Dyspnea Stated Complaint: diff breathing Time Seen by Provider: 04/06/21 15:01 Source: patient, family, old records reviewed and other (pcp) Mode of arrival: ambulatory Limitations: no limitations History of Present Illness HPI Narrative: 76-year-old male He has a history of bladder cancer that was relatively recently treated with radiation locally and chemo at [facility], and Dr. Davila is his oncologist Reportedly had a normal PET scan in December He had complained of some shortness of breath and had an outpatient chest x-ray showing a right-sided pleural effusion and questionable infiltrate He was given Levaquin for this but has worsened and contacted his physician today and was sent to the ED He is not a strong historian but currently complains of moderate shortness of breath, some right-sided chest pain, and also aches and pains in his legs Mainly his relates his history Additionally he has an umbilical hernia which was scheduled for repair by Dr. Petra grady next Saturday Related Data Home Medications Medication Instructions Recorded Confirmed finasteride 5 mg tablet 5 mg PO DAILY 12/28/19 03/31/21 ibuprofen 200 mg PO Q6H PRN 08/09/20 03/31/21 mecobalamin (vitamin B12) 1,000 1,000 mcg PO DAILY 09/07/20 03/31/21 mcg chewable tablet cholecalciferol (vitamin D3) 125 125 mcg PO DAILY 03/03/21 03/31/21 mcg (5,000 unit) tablet atorvastatin 40 mg PO QPM 03/31/21 03/31/21 valsartan-hydrochlorothiazide 1 tablet PO DAILY 03/31/21 03/31/21 oxybutynin chloride mg PO 04/06/21 Allergies Allergy/AdvReac Type Severity Reaction Status Date / Time triprolidine Allergy Intermediate Unknown Verified 04/06/21 15:28 pseudoephedrine AdvReac Mild shortness Verified 04/06/21 15:28 of breathe Review of Systems Review of Systems: All systems reviewed & are unremarkable except as noted in HPI and below Constitutional: Constitutional: Reports no additional constitutional complaints, Denies chills, Reports fatigue, Denies fever(s), Denies headache(s) and Reports weakness Eyes: Eyes: Reports no additional eye complaints and Denies change in vision ENT: Denies headache(s) and Denies sore throat Cardiovascular: Cardiovascular: Reports chest pain and Denies dyspnea Respiratory: Respiratory: Denies cough and Reports dyspnea Gastrointestinal: Gastrointestinal: Reports abdominal pain, Denies diarrhea and Denies vomiting Genitourinary: Genitourinary: Denies dysuria and Denies urinary frequency Musculoskeletal: Musculoskeletal: Reports myalgias, Denies deformity, Reports arthralgias, Denies joint swelling and Denies numbness Integumentary/Breasts: Skin/Breast: Denies rash and Denies wounds Neurologic: Denies headache(s), Denies focal weakness, Denies numbness and Reports weakness Psychiatric: Psychiatric: Reports no additional psychiatric complaints Endocrine: Endocrine: Reports no additional endocrine complaints Hematologic/Lymphatic: Hematologic/Lymphatic: Reports no additional hematologic/lymphatic complaints Allergic/Immunologic: Allergic/Immunologic: Reports no additional allergic/immunologic complaints PMFSH Past Medical History Medical History BPH NOS w ur obs/LUTS Chronic GERD CKD (chronic kidney disease) COPD (chronic obstructive pulmonary disease) Essential (primary) hypertension Hyperlipidemia Hypertensive heart and chronic kidney disease without heart failure Hypertensive heart disease without heart failure Hypothyroidism Structural abnormality of bladder Surgical History Surgical History H/O prostatectomy [place] teeth extracted Family History Family History Other No family history of cancer Social History Social History
--- NOTE | 2021-04-06 17:00 | PM.IMHP ---
H&P: HPI History of Present Illness Date/Time: 04/06/21 17:00 Chief Complaint: Shortness of breath. Narrative: This is a 76-year-old male with history of hypertension, hypothyroidism, GERD, BPH, and bladder cancer status post chemoradiation who presented to the emergency department earlier today for evaluation of shortness of breath. About 5 days ago he developed a cough early productive of clear sputum as well as mild shortness of breath. He spoke with his primary care provider on Saturday and had a chest x-ray done at that time showing a right-sided pleural effusion as well as questionable infiltrate for which he was started on levofloxacin. Unfortunately his shortness of breath has continued to get worse and he came in for evaluation today. A repeat chest x-ray showed an increase in a moderate right pleural effusion and he is now status post thoracentesis which yielded 1000 mL of patsy colored fluid. His breathing is feeling quite a bit better status post thoracentesis. On exam he was found to have markedly edematous lower legs and he reports that has developed over the last couple of weeks. He denies fever and sweats but reports having chills quite frequently. He denies orthopnea and PND. No history of venous thromboembolism. He has not had any chest pain or pleuritic pain. No known sick contacts. Review of Systems Review of Systems: Twelve systems were reviewed. The patient has had a difficult time putting on weight and has had gradual weight loss over the years. Over the last several days he has not eaten much and he tells me that he has been having an increasingly difficult time swallowing, feeling as though food and pills are getting stuck. He has no concerns for aspiration. No significant sinus congestion, rhinorrhea, otalgia, or odynophagia. He denies anosmia and dysgeusia. No nausea, vomiting, or diarrhea. No dysuria. No recent change in medications. No syncope or near syncope. Denies muscle cramps. Except as documented, all other systems were reviewed and are negative. 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 Bladder cancer Chronic anemia Chronic GERD Chronic kidney disease Chronic obstructive pulmonary disease Essential (primary) hypertension Hyperlipidemia Hypothyroidism Surgical History Surgical History (Updated 04/06/21 @ 22:36 by Glory Jonas PA-C) History of colonoscopy with polypectomy History of foot surgery History of transurethral resection of prostate History of vasectomy [place] teeth extracted Family History Family History Father Acute myocardial infarction Mother Acute myocardial infarction Other Alzheimer disease No family history of cancer Social History Social History (Updated 04/06/21 @ 22:37 by Glory Jonas PA-C) Social History: Surrogate decision maker: Emery, . Code status: Full code. Smoking packs per day: 0.5 Smoking cigarettes per day: 10.0 Years smoked: 55 Smoking pack-years: 27.50 Smoking status: Current some day smoker Tobacco type: cigarettes Second hand tobacco smoke exposure: Yes Alcohol intake: former Drinks per week: 3 Alcohol use details: Former heavy drinker. Now drinks perhaps 3 beers a week. Substance use: never Substance use type: does not use Additional living arrangements comments: Resides in [place] with his . Additional occupation/education comments: Retired from [employer]. Meds Home Medications and Allergies Home Medications Medication Instructions Recorded Confirmed Type finasteride 5 mg tablet 5 mg PO DAILY 12/28/19 04/06/21 History ibuprofen 200 mg PO Q6H PRN 08/09/20 04/06/21 History pantoprazole 40 mg tabl
[2021-04-06] MEDS: MAGNESIUM SULF 2 GM/WATER 50ML 2 GM/50 ML BAG IVPB (18:08)
--- NOTE | 2021-04-06 18:13 | PC.NURSE ---
Pt c/o right FA iv hurting. flushed site, flowed ok but still c/o pain. started 2 new ivs on other side for meds. Reflushed right IV and no longer c/o pain.
[2021-04-06 18:14] LABS: Appearance Pleural Fluid Turbid (Clear); Color Pleural Fluid Yellow (Colorless); Pleural fluid source Pleural fluid
[2021-04-06] MEDS: SODIUM CHLORIDE 0.9% IV 1,000 ML 999 ML (18:48)
[2021-04-06] MEDS: cefTRIAXone 2 GM in SODIUM CHLORIDE 0.9% IV 100 ML 200 ML IVPB (19:21)
[2021-04-06] MEDS: DOXYCYCLINE IV 100 MG in SODIUM CHLORIDE 0.9% IV 100 ML IVPB (19:23)
[2021-04-06 19:59] LABS: Nucleated Cell Pleural Fluid 16350 /uL (0-1000)
[2021-04-06 20:00] LABS: Lymphocytes Pleural Fluid 1 %; Macrophages Pleural Fluid 11 %; Monocytes Pleural Fluid 6 %; Neutrophils Pleural Fluid 82 % (0-25)
--- NOTE | 2021-04-06 21:43 | ADMGEN ---
This patient, Song Land Jr., was admitted to Medical Room 254-01. Patient/family oriented to hospital policies and general routines including ID bracelet, bed and alarms, visiting hours, pain management, procedures, bathroom and other care routines, personal items, smoking policy, room service/diet, and visiting hours. Information on how to activate the Rapid Response Team has been discussed. Patient/Family are encouraged to report perceived risks to care and to ask questions if they do not understand what they are told or what they should do.
[2021-04-07] VITALS (10 sets, daily range): BP systolic 90–120; BP diastolic 50–64; PULSE 82–105; RESP 16–18; TEMP 36.5–37.2; O2SAT 90–95
[2021-04-07 00:16] LABS: Anion Gap 6 mmol/L (8-16); Blood Urea Nitrogen 26 mg/dL (9-20); Calcium 7.8 mg/dL (8.4-10.2); Carbon Dioxide 29 mmol/L (22-30); Chloride 95 mmol/L (98-107); Estimated CRCL calculation 46 ml/min; Estimated Glomerular Filt Rate > 60; Glucose 101 mg/dL (65-110); Potassium 2.4 mmol/L (3.4-5.0); Sodium 130 mmol/L (137-145)
[2021-04-07] MEDS: KCL 20 MEQ/SW 100 ML 100 ML 50 MEQ IVPB ×2 (01:25→03:13)
[2021-04-07 03:29] LABS: Creatinine Urine 102.6 mg/dL
[2021-04-07 04:13] LABS: Sodium Urine Random < 5 meq/L
[2021-04-07] MEDS: DOXYCYCLINE IV 100 MG in SODIUM CHLORIDE 0.9% IV 100 ML IVPB ×2 (05:27→17:49)
[2021-04-07] MEDS: LEVOTHYROXINE SODIUM 50 MCG TABLET PO (05:31)
[2021-04-07 06:24] LABS: Basophils Percent Auto 0.2 % (0.2-1.2); Hematocrit 31.1 % (42.0-52.0); Hemoglobin 10.4 g/dL (14.0-18.0); Immature Granulocyte Percent A 0.8 % (0-0.5); Lymphocytes Percent Auto 2.3 % (18.3-44.2); Mean Corpuscular HGB Conc 33.4 g/dl (32-36); Mean Corpuscular Hemoglobin 28.3 pg (26-34); Mean Corpuscular Volume 84.5 fl (80-100); Mean Platelet Volume 10.3 fl (7.4-10.4); Monocytes Percent Auto 7.4 % (2.6-8.5); Neutrophils Absolute Auto 11.6 K/mm3 (1.3-6.7); Neutrophils Percent Auto 89.3 % (45.5-73.1); Platelet Count Result 406 k/mm3 (150-375); Red Blood Count 3.68 M/mm3 (4.6-6.20); Red Cell Distribution Width 16.2 % (11.5-14.5)
[2021-04-07 06:40] LABS: Anion Gap 6 mmol/L (8-16); Blood Urea Nitrogen 23 mg/dL (9-20); Calcium 8.3 mg/dL (8.4-10.2); Carbon Dioxide 30 mmol/L (22-30); Chloride 94 mmol/L (98-107); Estimated CRCL calculation 56 ml/min; Estimated Glomerular Filt Rate > 60; Glucose 85 mg/dL (65-110); Potassium 2.9 mmol/L (3.4-5.0); Sodium 130 mmol/L (137-145)
[2021-04-07 07:07] LABS: Anisocytosis 1+ (NORMAL); Platelet Estimate Adequate (Adequate); Poikilocytosis 2+ (NORMAL)
[2021-04-07 07:08] LABS: Burr Cells 2+ (NORMAL); Helmet Cells 1+ (NORMAL)
[2021-04-07 08:04] LABS: Magnesium 2.1 mg/dL (1.6-2.3)
[2021-04-07] MEDS: POTASSIUM CHLORIDE 20 MEQ PACKET (FOR LIQUID) 60 MEQ PO (09:19)
[2021-04-07] MEDS: FINASTERIDE 5 MG TABLET PO (09:47)
[2021-04-07] MEDS: CYANOCOBALAMIN 1,000 MCG TABLET 1000 MCG PO (09:47)
[2021-04-07] MEDS: CHOLECALCIFEROL 1,000 UNITS TABLET 5000 UNITS PO (09:48)
[2021-04-07] MEDS: PANTOPRAZOLE 40 MG TABLET PO (09:48)
--- NOTE | 2021-04-07 10:12 | PM.IMPN ---
Progress Note: A&P Assessment and Plan (1) Hypoxia: Code(s): R09.02 - Hypoxemia Status: Acute Assessment and Plan: Currently on 2 L nasal cannula. Suspect related to pleural effusion and possible underlying pneumonia. Pulmonary embolism is a consideration given his marked lower extremity edema and history of cancer. He had a thoracentesis and he reports improvement in his breathing since the procedure. We are waiting for a CT of his chest for further evaluation Will also check venous Dopplers due to leg swelling and echocardiogram to rule out congestive heart failure cause to pleural effusions causing hypoxia Continue monitoring oxygenation and wean as tolerated. (2) Pleural effusion on right: Code(s): J90 - Pleural effusion, not elsewhere classified Status: Acute Assessment and Plan: Status post thoracentesis yielding 1000 mL of patsy colored fluid. Gram stain showed white blood cells with no organisms. Cell count pleural RBC 6703, Nuc Cels [id number], Neutrophils 82% Cultures pending He has been started on antibiotics for possible underlying pneumonia as well. (3) Hyponatremia: Code(s): E87.1 - Hypo-osmolality and hyponatremia Status: Acute Assessment and Plan: Sodium was within normal limits about 1 month ago. He has marked lower extremity edema thus this may be related to volume overload however he is on hydrochlorothiazide and with history of malignancy and COPD there are multiple possible etiologies. He was given IV fluids in the emergency department which were discontinued. TSH normal urine osmolalities show Urine Random Sodium <5 and Urine Creatinine 102, FeNa 0 showing hypovolemia vs CHF Closely monitor sodium to not increase to quickly. Patients states he has not been eating and drinking well. (4) Hypokalemia: Code(s): E87.6 - Hypokalemia Status: Acute Assessment and Plan: Was 2.1 on arrival and improved to 2.9 this morning. Potassium will be replaced and monitored. (5) Hypomagnesemia: Code(s): E83.42 - Hypomagnesemia Status: Acute Assessment and Plan: Mag normal this morning. (6) Chronic anemia: Code(s): D64.9 - Anemia, unspecified Status: Acute Assessment and Plan: Hemoglobin and hematocrit are stable on review of previous labs. (7) Hypothyroidism (acquired): Code(s): E03.9 - Hypothyroidism, unspecified Status: Acute Assessment and Plan: Continue levothyroxine. Normal TSH. (8) Essential (primary) hypertension: Code(s): I10 - Essential (primary) hypertension Status: Inactive Assessment and Plan: Blood pressure this morning was 101/58 which is soft. Will hold antihypertensives for now and monitor closely. (9) Chronic obstructive pulmonary disease: Code(s): J44.9 - Chronic obstructive pulmonary disease, unspecified Status: Inactive Assessment and Plan: No wheezing on examination. Continue home medications. (10) Bladder cancer: Code(s): C67.9 - Malignant neoplasm of bladder, unspecified Status: Acute Assessment and Plan: Status post chemoradiation, considered to be in remission per patient report. (11) Hypoalbuminemia: Code(s): E88.09 - Other disorders of plasma-protein metabolism, not elsewhere classified Status: Acute Assessment and Plan: Patient reports difficulties swallowing and says he has been losing weight. Will consult GI for possible endoscopy as well as dietitian for recommendations. (12) Dysphagia: Code(s): R13.10 - Dysphagia, unspecified Status: Acute Assessment and Plan: Bedside swallow evaluation by speech therapy showed he did well and recommended regular diet and thin liquids. GI consulted for possible EGD. Time Spent With Patient Time with patient: 25 - 35 minutes Subjective Date/time seen:
[2021-04-07 11:29] LABS: RBC Pleural Fluid 6703 /uL (0-0)
[2021-04-07 14:47] LABS: Potassium 3.1 mmol/L (3.4-5.0); Sodium 133 mmol/L (137-145)
--- NOTE | 2021-04-07 14:53 | WPDGICN ---
Assessment and Plan Assessment and plan (1) Decreased appetite: Code(s): R63.0 - Anorexia Status: Acute Assessment and Plan: loss appetite last 5 days but denies choking or food getting stuck he is back to his baseline after underwent thoracentesis and now he is eating lunch without any difficulty, already evaluated by speech therapy with no major findings at bedside evaluation (2) Pleural effusion on right: Code(s): J90 - Pleural effusion, not elsewhere classified Status: Acute Assessment and Plan: much better after thoracentesis on antibiotics (3) Ascites: Code(s): R18.8 - Other ascites Status: Acute Assessment and Plan: also noted ascites by CT scan (physical exam did not reveal obvious ascites), no history of liver disease and he has normal liver enzymes with platelets but it is concerning that with history of bladder cancer he could have carcinomatosis, also could be from low albumin/malnutrition, etc. will ask radiology if could obtain fluid, will check if portal hypertension and also cytology to assess if malignancy will get also hepatitis panel (4) Bladder cancer: Code(s): C67.9 - Malignant neoplasm of bladder, unspecified Status: Acute Assessment and Plan: he has seen oncology and received treatment (5) Hypoalbuminemia: Code(s): E88.09 - Other disorders of plasma-protein metabolism, not elsewhere classified Status: Acute (6) Chronic anemia: Code(s): D64.9 - Anemia, unspecified Status: Acute Assessment and Plan: hb stable at 10 (7) Hypokalemia: Code(s): E87.6 - Hypokalemia Status: Acute Assessment and Plan: treated (8) Hyponatremia: Code(s): E87.1 - Hypo-osmolality and hyponatremia Status: Acute (9) Pneumonia: Code(s): J18.9 - Pneumonia, unspecified organism Status: Acute Assessment and Plan: on treatment (10) Weight loss: Code(s): R63.4 - Abnormal weight loss Status: Acute GI Consult Note Consult date/time: 04/07/21 14:53 HPI: Song Jairo Land Jr. 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 He completed a course of radiation therapy as part of bladder preservation between 08/23/2020 and 10/12/2020 and is seeing oncology as outpatient. He came to the hospital with 5 days of new cough with worsening shortness of breath and clear sputum, also more leg edema and just feeling tired, also not eating much- says that will get full and not feeling like eating. PCP ordered chest x-ray that showed right-sided pleural effusion as well as questionable infiltrate for which he was started on levofloxacin but feeling worse and came to ER, he just had thoracentesis which yielded 1000 mL of patsy colored fluid and right now is feeling much better, breathing better, no nausea or vomiting and denies dysphagia in fact the is eating lunch right now. CT scan a/p reviewed and showed moderate volume of abdominal pelvic ascites (also noted few months ago), midline epigastric hernia containing nonobstructed transverse colon, moderate pleural effusions with atelectasis and pneumonia of the visualized lower lobes, areas of severe atherosclerosis. He denies history of liver disease, no etoh use, no history of paracentesis. He had weight loss since getting cancer treatment. Patient was told that cancer is on remission. Never had EGD but had colonoscopy less than 2 years ago. Review of Systems Constitutional: Constitutional: Reports lethargy and Reports weight loss Eyes: Eyes: Denies blurry vision ENT: Reports Normal hearing present Cardiovascular: Cardiovascular: Reports pedal edema Respiratory: Respiratory: Reports co
[2021-04-07] MEDS: POTASSIUM CHLORIDE 20 MEQ TABLET 60 MEQ PO (17:04)
[2021-04-07] MEDS: ATORVASTATIN 40 MG TABLET PO (17:05)
[2021-04-07 18:17] LABS: Appearance Peritoneal Fluid Cloudy (Clear); Color Peritoneal Fluid Yellow (Colorless); Source Peritoneal Fluid Peritoneal Fluid
[2021-04-07 18:20] LABS: Lymphocytes Peritoneal Fluid 32 %; Neutrophils Peritoneal Fluid 16 % (0-25)
[2021-04-07 18:21] LABS: Macrophages Peritoneal Fluid 41 %; Mesothelial Cells Peritoneal Fluid 11 %
--- NOTE | 2021-04-07 19:45 | PC.NURSE ---
Patient refusing telemetry at this time, Mary Jonas notified.
--- NOTE | 2021-04-07 22:56 | ECHO_ITS ---
Patient Info Name: Song Land Age: 76 years : 1945 Gender: Male Ht: 64 in Wt: 130 lbs BSA: 1.64 m2 HR: 92 bpm BP: 101 / 58 mmHg Heart Rhythm: Sinus Rhythm Technical Quality: Fair Exam Date: 04/07/2021 9:27 AM Exam Location: [facility] Pulmonary Exam Room: 254 Patient Status: Inpatient Admit Date: 04/06/2021 Staff Ordering Physician: Glory Jonas PA-C Airplane Pilot Chief: Ni Mendez RDCS Attending Provider: Lexie Ambriz PA-C Referring Physician: Pritesh OLSEN; Exam Type: CA echo doppler color flow Study Info Indications - htn copd edema Complete two-dimensional, color flow and Doppler transthoracic echocardiogram is performed. Summary 1. Complete two-dimensional, color flow and Doppler transthoracic echocardiogram is performed. 2. Left ventricular chamber dimension is normal. 3. There is mildly increased left ventricular wall thickness. 4. Left ventricular systolic function is normal, estimated at 65-70%. 5. The left ventricular diastolic function is grade I diastolic dysfunction. 6. Left atrial chamber dimension is mildly enlarged. 7. Right atrial chamber dimension is mildly enlarged. 8. There is moderate aortic valve sclerosis. 9. There is mild mitral valve regurgitation. 10. The mitral valve annulus is mildly calcified. 11. There is moderate tricuspid valve regurgitation. 12. Moderate pulmonary hypertension, estimated pulmonary arterial systolic pressure is 46 mmHg. 13. There appears to be increased echogenicity on the pericardial surface of the right ventricle. 14. There is small pericardial effusion. 15. Ascites is seen and probable hepatic cyst versus mass. Recommend dedicated liver/right upper quadrant ultrasound for further evaluation. Left Ventricle Left ventricular chamber dimension is normal. Left ventricular systolic function is normal, estimated at 65-70%. There is mildly increased left ventricular wall thickness. The left ventricular diastolic function is grade I diastolic dysfunction. Right Ventricle Right ventricular chamber dimension is normal. Right ventricular systolic function is normal. Left Atria Left atrial chamber dimension is mildly enlarged. Right Atria Right atrial chamber dimension is mildly enlarged. Atrial Septum Intact interatrial septum visualized by color flow imaging. Aortic Valve The aortic valve is trileaflet. There is moderate aortic valve sclerosis. There is no aortic valve stenosis. There is trace aortic valve regurgitation. Pulmonic Valve The pulmonic valve is not well visualized. There is no pulmonic valve stenosis. There is trace pulmonic regurgitation. Mitral Valve There is no mitral valve stenosis. There is mild mitral valve regurgitation. The mitral valve annulus is mildly calcified. Tricuspid Valve The tricuspid valve leaflets are normal. There is no significant tricuspid valve stenosis. There is moderate tricuspid valve regurgitation. Moderate pulmonary hypertension, estimated pulmonary arterial systolic pressure is 46 mmHg. Other Findings Ascites is seen and probable hepatic cyst versus mass. Recommend dedicated liver/right upper quadrant ultrasound for further evaluation. Pericardium/Pleural There appears to be increased echogenicity on the pericardial surface of the right ventricle. There is small pericardial effusion. Aorta The aortic root size at the sinus of Valsalva is normal. Left Ventricular Outflow Tract
[2021-04-08] VITALS (8 sets, daily range): BP systolic 91–145; BP diastolic 57–74; PULSE 61–91; RESP 14–20; TEMP 36.8–37.2; O2SAT 90–96
[2021-04-08 05:53] LABS: Basophils Percent Auto 0.1 % (0.2-1.2); Hematocrit 32.1 % (42.0-52.0); Hemoglobin 10.8 g/dL (14.0-18.0); Immature Granulocyte Absolute 0.07 K/mm3 (0.00-0.031); Immature Granulocyte Percent A 0.7 % (0-0.5); Lymphocytes Absolute Auto 0.26 K/mm3 (0.9-3.2); Lymphocytes Percent Auto 2.5 % (18.3-44.2); Mean Corpuscular HGB Conc 33.6 g/dl (32-36); Mean Corpuscular Hemoglobin 28.6 pg (26-34); Mean Corpuscular Volume 85.1 fl (80-100); Monocytes Absolute Auto 0.9 K/mm3 (0.1-0.6); Monocytes Percent Auto 8.6 % (2.6-8.5); Neutrophils Absolute Auto 9.3 K/mm3 (1.3-6.7); Neutrophils Percent Auto 88.1 % (45.5-73.1); Platelet Count Result 405 k/mm3 (150-375); Red Blood Count 3.77 M/mm3 (4.6-6.20); Red Cell Distribution Width 16.4 % (11.5-14.5); White Blood Count 10.5 K/mm3 (4.5-10.0)
[2021-04-08] MEDS: DOXYCYCLINE IV 100 MG in SODIUM CHLORIDE 0.9% IV 100 ML IVPB ×2 (05:58→17:07)
[2021-04-08 06:03] LABS: Anion Gap 8 mmol/L (8-16); Blood Urea Nitrogen 22 mg/dL (9-20); Calcium 8.2 mg/dL (8.4-10.2); Carbon Dioxide 28 mmol/L (22-30); Chloride 100 mmol/L (98-107); Estimated CRCL calculation 51 ml/min; Estimated Glomerular Filt Rate > 60; Glucose 117 mg/dL (65-110); Potassium 3.2 mmol/L (3.4-5.0); Sodium 136 mmol/L (137-145)
[2021-04-08 06:47] LABS: Anisocytosis 1+ (NORMAL); Platelet Estimate Adequate (Adequate)
[2021-04-08 06:48] LABS: Acanthocytes 2+ (NORMAL); Helmet Cells 1+ (NORMAL); Ovalocytes 1+ (NORMAL); Target Cells 1+ (NORMAL)
[2021-04-08 07:10] LABS: Hepatitis B Surface Antigen Negative (Negative)
[2021-04-08 07:16] LABS: HAV RESULT Negative (Negative); Hepatitis B Core IgM Result Negative (Negative)
[2021-04-08 07:27] LABS: Hepatitis C Virus Antibody Negative (Negative)
[2021-04-08] MEDS: LEVOTHYROXINE SODIUM 50 MCG TABLET PO (07:44)
[2021-04-08] MEDS: ALBUMIN HUMAN 25% 12.5 GM/50ML 50 ML IVPB (08:59)
[2021-04-08] MEDS: ENOXAPARIN 40 MG/0.4 ML SYRINGE SUB-Q (09:02)
[2021-04-08] MEDS: FINASTERIDE 5 MG TABLET PO (09:02)
[2021-04-08] MEDS: CYANOCOBALAMIN 1,000 MCG TABLET 1000 MCG PO (09:02)
[2021-04-08] MEDS: PANTOPRAZOLE 40 MG TABLET PO (09:02)
[2021-04-08] MEDS: POTASSIUM CHLORIDE 20 MEQ TABLET 40 MEQ PO ×2 (09:02→17:03)
[2021-04-08] MEDS: CHOLECALCIFEROL 1,000 UNITS TABLET 5000 UNITS PO (09:02)
--- NOTE | 2021-04-08 10:16 | WPDGIPROGNO ---
Progress Note: A&P Assessment and Plan (1) Ascites: Code(s): R18.8 - Other ascites Status: Acute Assessment and Plan: paracentesis yesterday, there is no known history of liver disease, hepatitis panel negative, normal platelets pending ascites fluid to check if portal hypertension, also cytology since he had recent bladder cancer low salt diet also noted low albumin and anasarca (2) Pneumonia: Code(s): J18.9 - Pneumonia, unspecified organism Status: Acute Assessment and Plan: on treatment (3) Pleural effusion on right: Code(s): J90 - Pleural effusion, not elsewhere classified Status: Acute Assessment and Plan: recent thoracentesis (4) Hypoalbuminemia: Code(s): E88.09 - Other disorders of plasma-protein metabolism, not elsewhere classified Status: Acute (5) Chronic anemia: Code(s): D64.9 - Anemia, unspecified Status: Acute Assessment and Plan: hb low but stable (6) Decreased appetite: Code(s): R63.0 - Anorexia Status: Acute (7) Weight loss: Code(s): R63.4 - Abnormal weight loss Status: Acute (8) Bladder cancer: Code(s): C67.9 - Malignant neoplasm of bladder, unspecified Status: Acute Subjective Date/time seen: 04/08/21 10:16 Interval history: he also had paracentesis yesterday and 450 ml yellow fluid removed. Today he is feeling tired and did not eat breakfast. Review of Systems Review of Systems: All systems reviewed & are unremarkable except as noted in HPI and below Exam Const: General: comfortable and no acute distress Other: thin HENMT: General nose exam: Normal nares present Eyes: Sclera: sclerae normal Neck: Neck: supple Resp: Effort & Inspection: normal respiratory effort Auscultation: no wheezes and diminished lung sounds Cardio: Rate: regular rate GI: GI Palp: Yes Soft to palpation, No Tenderness to palpation present (GI) and No Guarding due to palpation present (GI) Auscultation: normal bowel sounds Other: epigastric hernia, no pain Skin: General skin exam: normal color Neuro: Speech: normal speech Motor exam (neuro): Normal motor muscle tone present throughout Extrem: General: pedal edema bilaterally Psych: Mental Status: mental status grossly normal Objective Data Vital Signs Vital Signs: Vital Signs - 24 hr 04/07/21 12:00 04/07/21 14:30 04/07/21 14:33 Temperature 98.1 F 97.7 F 97.7 F Pulse Rate 84 98 104 H Respiratory Rate 16 16 18 Blood Pressure 110/64 100/50 L 90/50 L Pulse Oximetry 92 90 95 04/07/21 16:00 04/07/21 20:00 04/08/21 00:00 Temperature 98.1 F 98.9 F 98.5 F Pulse Rate 84 102 H 91 Respiratory Rate 16 17 16 Blood Pressure 110/64 100/60 115/57 L Pulse Oximetry 92 90 90 04/08/21 04:00 04/08/21 08:09 04/08/21 09:59 Temperature 98.9 F Pulse Rate 76 90 Respiratory Rate 18 Blood Pressure 95/70 L 145/74 H Pulse Oximetry 91 Intake/Output Intake/Output: Intake & Output 04/05/21 04/06/21 04/07/21 04/08/21 23:59 23:59 23:59 23:59 Intake Total 1550 880 540 Output Total 1000 2050 450 Balance 550 -1170 90 Meds/Results Medications: Active Medications Generic Name Dose Route Start Last Admin Trade Name Freq PRN Reason Stop Dose Admin Acetaminophen 650 mg 04/06/21 17:33 Acetaminophen 325 Mg Tablet PO Q4H PRN Mild Pain (1-3) or Fever Atorvastatin Calcium 40 mg 04/07/21 18:00 04/07/21 17:05 Atorvastatin 40 Mg Tablet PO 40 mg QPM KALI Administration Cyanocobalamin 1,000 mcg 04/07/21 09:00 04/08/21 09:02 Cyanocobalamin 1,000 Mcg Tablet PO 1,000 mcg QAM KALI Administration Enoxaparin Sodium 40 mg 04/08/21 09:00 04/08/21 09:02 Enoxaparin 40 Mg/0.4 Ml Syringe SUB-Q 40 mg DAILY KALI Administration Finasteride 5 mg 04/07/21 09:00 04/08/21 09:02 Finasteride 5 Mg Tablet PO 5 mg DAILY KALI Administration Furosemide 20 mg 04/08/21 09:00 Satish
--- NOTE | 2021-04-08 10:23 | PM.IMPN ---
Progress Note: A&P Assessment and Plan (1) Acute respiratory failure with hypoxemia: Code(s): J96.01 - Acute respiratory failure with hypoxia Status: Acute Assessment and Plan: Currently on 2 L nasal cannula. Suspect related to pleural effusion and possible underlying pneumonia. Venous dopplers negative for DVT. He had a thoracentesis showing elevated neutrophils which could be concerning for infection possibly related to pneumonia. Thoracentesis cultures are still pending as well as further results to see if it is transudative versus exudate of effusion Echocardiogram showed normal EF, diastolic grade 1 dysfunction, moderate pulmonary hypertension CT Chest showed continued Moderate-sized pleural effusions, Near complete opacification of the right lower lobe and moderate opacification of the left lower lobe, consistent with atelectasis and pneumonia. Pleural effusions could be secondary to diastolic congestive heart failure in increased pulmonary pressures knee transudative but we are waiting for results Pathology for thoracentesis did not show any malignant cells, only white blood cells Will continue with treatment of pneumonia and I will start some mild diuresis with albumin 1st and then 20 of IV Lasix Continue monitoring oxygenation and wean as tolerated. (2) Pleural effusion on right: Code(s): J90 - Pleural effusion, not elsewhere classified Status: Acute Assessment and Plan: Bilateral pleural effusions, moderate in size. Status post thoracentesis yielding 1000 mL of patsy colored fluid. Gram stain showed white blood cells with no organisms. Pathology showed REACTIVE MESOTHELIAL CELLS AND ACUTE INFLAMMATION. NEGATIVE FOR MALIGNANT CELLS. NO NEED FOR FLOW CYTOMETRY. Cell count pleural RBC 6703, Nuc Cels 70137, Neutrophils 82%, which could be showing Pneumonia infection, pending culture results He has been started on antibiotics for possible underlying pneumonia as well. (3) Abdominal ascites: Code(s): R18.8 - Other ascites Status: Acute Assessment and Plan: Patient found to have moderate amount of abdominal ascites. GI ordered a hepatic panel which was normal. LFTs have been normal as well as coag panel. A paracentesis was done on 04/07/2021 which showed cloudy appearance of peritoneal fluid, normal neutrophil count. Pathology on the paracentesis fluid showed ATYPICAL CELLS SUSPICIOUS FOR NEOPLASM. FULL CYTOLOGIC WORKUP INCLUDING CELL BLOCK PENDING. Could be caused by a of recurrence of the patient's bladder cancer versus a metastasis Abdominal CT did not show any suspicious lymph node enlargement or masses. I did consult Dr. Benitez our oncologists for further evaluation recommendations given the patient's history and atypical cells suspicious for neoplasm on the paracentesis. Appreciate oncology's input. Continue monitoring. (4) Hyponatremia: Code(s): E87.1 - Hypo-osmolality and hyponatremia Status: Acute Assessment and Plan: Sodium was within normal limits about 1 month ago. He has marked lower extremity edema thus this may be related to volume overload however he is on hydrochlorothiazide and with history of malignancy and COPD there are multiple possible etiologies. He was given IV fluids in the emergency department which were discontinued. TSH normal urine osmolalities show Urine Random Sodium <5 and Urine Creatinine 102, FeNa 0 showing hypovolemia vs CHF Sodium is almost normal at 136. Could be due to stopping hydrochlorothiazide versus patient eating and drinking more. Closely monitor sodium to not increase to quickly. (5) Hypokalemia: Code(s): E87.6 - Hypokalemia Status: Acute Assessment and Plan: Was 2.1 on arrival and improved to 3.2
[2021-04-08] MEDS: FUROSEMIDE INJ 40 MG/4 ML VIAL 20 MG IV PUSH (10:38)
[2021-04-08 10:50] LABS: Iron 28 ug/dL (49-181)
[2021-04-08 11:01] LABS: Percent Iron Saturation 13 % (20-50)
[2021-04-08 11:08] LABS: IFOB Positive Control Positive; Immunochemical Fecal Occult Bl Positive (N)
[2021-04-08 11:15] LABS: Transferrin 150 mg/dL (206-381)
[2021-04-08 11:46] LABS: Vitamin B12 > 1000.0 pg/mL (239-931)
[2021-04-08] MEDS: ATORVASTATIN 40 MG TABLET PO (17:03)
[2021-04-08] MEDS: HALOPERIDOL LACTATE 5 MG/ML VIAL 1 MG IM (19:34)
[2021-04-08] MEDS: HALOPERIDOL LACTATE 5 MG/ML VIAL IM (20:36)
[2021-04-08] MEDS: LORazepam INJ (*CRX) 2 MG/ML VIAL 1 MG IM (23:30)
[2021-04-08] MEDS: diphenhydrAMINE HCl INJ 50 MG/ML VIAL 25 MG IM (23:30)
[2021-04-09] VITALS (10 sets, daily range): BP systolic 96–141; BP diastolic 49–76; PULSE 60–100; RESP 14–22; TEMP 36–37.1; O2SAT 85–100
[2021-04-09 06:07] LABS: Basophils Percent Auto 0.1 % (0.2-1.2); Eosinophils Percent Auto 0.2 % (0-4.4); Hematocrit 31.4 % (42.0-52.0); Hemoglobin 10.4 g/dL (14.0-18.0); Immature Granulocyte Absolute 0.05 K/mm3 (0.00-0.031); Immature Granulocyte Percent A 0.4 % (0-0.5); Lymphocytes Absolute Auto 0.67 K/mm3 (0.9-3.2); Lymphocytes Percent Auto 5.8 % (18.3-44.2); Mean Corpuscular HGB Conc 33.1 g/dl (32-36); Mean Corpuscular Hemoglobin 28.6 pg (26-34); Mean Corpuscular Volume 86.3 fl (80-100); Monocytes Absolute Auto 1.2 K/mm3 (0.1-0.6); Monocytes Percent Auto 10.6 % (2.6-8.5); Neutrophils Absolute Auto 9.6 K/mm3 (1.3-6.7); Neutrophils Percent Auto 82.9 % (45.5-73.1); Platelet Count Result 359 k/mm3 (150-375); Red Blood Count 3.64 M/mm3 (4.6-6.20); Red Cell Distribution Width 16.5 % (11.5-14.5); White Blood Count 11.6 K/mm3 (4.5-10.0)
[2021-04-09 06:21] LABS: Anion Gap 4 mmol/L (8-16); Blood Urea Nitrogen 21 mg/dL (9-20); Calcium 8.3 mg/dL (8.4-10.2); Carbon Dioxide 26 mmol/L (22-30); Chloride 103 mmol/L (98-107); Estimated CRCL calculation 73 ml/min; Estimated Glomerular Filt Rate > 60; Glucose 96 mg/dL (65-110); Magnesium 2.1 mg/dL (1.6-2.3); Sodium 133 mmol/L (137-145)
[2021-04-09] MEDS: LEVOTHYROXINE SODIUM 50 MCG TABLET PO (06:23)
[2021-04-09] MEDS: DOXYCYCLINE IV 100 MG in SODIUM CHLORIDE 0.9% IV 100 ML IVPB ×2 (07:49→17:22)
[2021-04-09] MEDS: CHOLECALCIFEROL 1,000 UNITS TABLET 5000 UNITS PO (09:21)
[2021-04-09] MEDS: FINASTERIDE 5 MG TABLET PO (09:21)
[2021-04-09] MEDS: CYANOCOBALAMIN 1,000 MCG TABLET 1000 MCG PO (09:21)
[2021-04-09] MEDS: PANTOPRAZOLE 40 MG TABLET PO (09:21)
[2021-04-09] MEDS: ENOXAPARIN 40 MG/0.4 ML SYRINGE SUB-Q (09:22)
[2021-04-09] MEDS: POTASSIUM CHLORIDE 20 MEQ TABLET 40 MEQ PO ×2 (09:25→17:31)
[2021-04-09] MEDS: ALBUMIN HUMAN 25% 12.5 GM/50ML 50 ML IVPB ×2 (09:43→16:27)
--- NOTE | 2021-04-09 10:32 | WPDGIPROGNO ---
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 this will explain weight loss, lack of appetite and other symptoms prognosis is guarded given this finding will need follow-up with oncology will sign off, call if questions (2) Ascites: Code(s): R18.8 - Other ascites Status: Acute Assessment and Plan: no history of liver disease, no signs of cirrhosis and this is most likely from malignancy (3) Weight loss: Code(s): R63.4 - Abnormal weight loss Status: Acute (4) Acute respiratory failure with hypoxemia: Code(s): J96.01 - Acute respiratory failure with hypoxia Status: Acute (5) Pleural effusion on right: Code(s): J90 - Pleural effusion, not elsewhere classified Status: Acute Assessment and Plan: s/p thoracentesis (6) Bladder cancer: Code(s): C67.9 - Malignant neoplasm of bladder, unspecified Status: Acute Subjective Date/time seen: 04/09/21 10:32 Interval history: yesterday he was confused and delirious, is at bedside. Review of Systems Review of Systems: All systems reviewed & are unremarkable except as noted in HPI and below Exam Const: General: comfortable and no acute distress Other: thin HENMT: General nose exam: Normal nares present Eyes: Sclera: sclerae normal Neck: Neck: supple Resp: Effort & Inspection: normal respiratory effort Auscultation: no wheezes and diminished lung sounds Cardio: Rate: regular rate GI: GI Palp: Yes Soft to palpation, No Tenderness to palpation present (GI) and No Guarding due to palpation present (GI) Auscultation: normal bowel sounds Other: epigastric hernia, no pain Skin: General skin exam: normal color Neuro: Speech: normal speech Other: awake and alert but more confused than before Extrem: General: pedal edema bilaterally Psych: Affect: Anxious affect present Objective Data Vital Signs Vital Signs: Vital Signs - 24 hr 04/08/21 12:00 04/08/21 16:00 04/08/21 20:00 Temperature 98.2 F 98.3 F Pulse Rate 89 62 61 Respiratory Rate 14 14 20 Blood Pressure 136/66 91/60 L Pulse Oximetry 96 93 92 04/09/21 00:00 04/09/21 04:00 Temperature 97.6 F 96.8 F L Pulse Rate 60 95 Respiratory Rate 20 20 Blood Pressure 96/56 L 123/63 Pulse Oximetry 100 92 Intake/Output Intake/Output: Intake & Output 04/06/21 04/07/21 04/08/21 04/09/21 23:59 23:59 23:59 23:59 Intake Total 1550 880 970 Output Total 1000 2050 999 200 Balance 550 -1170 -29 -200 Meds/Results Medications: Active Medications Generic Name Dose Route Start Last Admin Trade Name Freq PRN Reason Stop Dose Admin Acetaminophen 650 mg 04/06/21 17:33 Acetaminophen 325 Mg Tablet PO Q4H PRN Mild Pain (1-3) or Fever Atorvastatin Calcium 40 mg 04/07/21 18:00 04/08/21 17:03 Atorvastatin 40 Mg Tablet PO 40 mg QPM KALI Administration Cyanocobalamin 1,000 mcg 04/07/21 09:00 04/09/21 09:21 Cyanocobalamin 1,000 Mcg Tablet PO 1,000 mcg QAM KALI Administration Enoxaparin Sodium 40 mg 04/08/21 09:00 04/09/21 09:22 Enoxaparin 40 Mg/0.4 Ml Syringe SUB-Q 40 mg DAILY KALI Administration Finasteride 5 mg 04/07/21 09:00 04/09/21 09:21 Finasteride 5 Mg Tablet PO 5 mg DAILY KALI Administration Furosemide 20 mg 04/09/21 09:30 Furosemide Inj 40 Mg/4 Ml Vial IV PUSH DAILY@929 KALI Ceftriaxone Sodium/Dextrose 1 gm in 50 mls @ 100 mls/hr 04/07/21 18:00 04/08/21 17:38 Rocephin 1 Gm/D5w 50 Ml IVPB Infused QPM KALI Infusion Doxycycline Hyclate 100 mg/ 100 mls @ 100 mls/hr 04/07/21 06:00 04/09/21 07:49 Sodium Chloride IVPB 100 mls/hr Q12H KALI Administ
--- NOTE | 2021-04-09 10:46 | PM.IMPN ---
Progress Note: A&P Assessment and Plan (1) Confusion: Code(s): R41.0 - Disorientation, unspecified Status: Acute Assessment and Plan: Patient's is concerned with his confusion. She states he is mildly confused while she is here, he knows who she is, a keeps saying he wants to go home. Then last night she had left and he became very confused and agitated and had a code purple called on him and required Ativan, Haldol and Benadryl to calm him down. concerned of possible metastatic disease to his brain, we had not had a CT scan from this admission so I will order 1 he is also pretty sound asleep, and continues to rip off his nasal cannula, so I will get an ABG for further evaluation will also repeat an x-ray to see if there has been any improvement with diuresis and his pleural effusions, or signs of worsening pneumonia for which I may have to switch antibiotics. Still having slight elevation of leukocytosis, neutrophils are trending down continue monitoring and will consider adding Seroquel in the evening for versus another medication (2) Acute respiratory failure with hypoxemia: Code(s): J96.01 - Acute respiratory failure with hypoxia Status: Acute Assessment and Plan: Patient has never been on oxygen. Currently on 2 L nasal cannula. Suspect related to pleural effusion and possible underlying pneumonia. Venous dopplers negative for DVT. He had a thoracentesis showing elevated neutrophils which could be concerning for infection possibly related to pneumonia. Thoracentesis cultures are still pending as well as further results to see if it is transudative versus exudate of effusion Echocardiogram showed normal EF, diastolic grade 1 dysfunction, moderate pulmonary hypertension CT Chest showed continued Moderate-sized pleural effusions, Near complete opacification of the right lower lobe and moderate opacification of the left lower lobe, consistent with atelectasis and pneumonia. Pleural effusions could be secondary to diastolic congestive heart failure in increased pulmonary pressure but we are waiting for results of thoracentesis labs Pathology for thoracentesis did not show any malignant cells, only white blood cells Will continue with treatment of pneumonia and I will start some mild diuresis with albumin 1st and then 20 of IV Lasix BID Continue monitoring oxygenation and wean as tolerated. (3) Pleural effusion on right: Code(s): J90 - Pleural effusion, not elsewhere classified Status: Acute Assessment and Plan: Bilateral pleural effusions, moderate in size. Status post thoracentesis yielding 1000 mL of patsy colored fluid. Gram stain showed white blood cells with no organisms. Pathology showed REACTIVE MESOTHELIAL CELLS AND ACUTE INFLAMMATION. NEGATIVE FOR MALIGNANT CELLS. NO NEED FOR FLOW CYTOMETRY. Cell count pleural RBC 6703, Nuc Cels 26369, Neutrophils 82%, which could be showing Pneumonia infection, pending culture results He has been started on antibiotics for possible underlying pneumonia as well. (4) Abdominal ascites: Code(s): R18.8 - Other ascites Status: Acute Assessment and Plan: Patient found to have moderate amount of abdominal ascites. GI ordered a hepatic panel which was normal. LFTs have been normal as well as coag panel. A paracentesis was done on 04/07/2021 which showed cloudy appearance of peritoneal fluid, normal neutrophil count. Pathology on the paracentesis fluid showed ATYPICAL CELLS SUSPICIOUS FOR NEOPLASM. FULL CYTOLOGIC WORKUP INCLUDING CELL BLOCK PENDING. Could be caused by a of recurrence of the patient's bladder cancer versus a metastasis Abdominal CT did not show any suspicious lymph node enlargement or masses. I did consult Dr. Benitez our oncologists for furthe
--- NOTE | 2021-04-09 11:04 | PCOTNOTE ---
Attempted to see patient at this time for skilled OT session. Patient sleeping soundly and pt's present upon entry. Patient was unable to be aroused from deep sleep. reports that patient seemed to be worn out from PT session earlier this AM and just went to sleep. also discusses concern with HARKINS about patient experiencing withdrawal from smoking and believes a patch would help the process. Pt's RN notified of 's concern. Will trial second attempt to complete session later this date after patient has had time to rest. Will continue per OT POC accordingly.
[2021-04-09] MEDS: FUROSEMIDE INJ 40 MG/4 ML VIAL 20 MG IV PUSH ×2 (11:38→18:06)
[2021-04-09] MEDS: NICOTINE (*PBKC) 21 MG PATCH 1 PATCH TRANSDERM (11:42)
[2021-04-09] MEDS: ATORVASTATIN 40 MG TABLET PO (17:32)
[2021-04-09] MEDS: ALBUTEROL SULFATE NEB 2.5 MG/0.5 ML INH INHALATION (17:56)
[2021-04-09] MEDS: IPRATROPIUM BR 0.02% INH SOLN 0.5 MG/2.5 ML VIAL INHALATION (17:56)
[2021-04-09 18:09] LABS: Alveolar/Arterial O2 Gradient 98.4 mmHg; Carboxyhemoglobin 0.1 % THb (0-2.0); Fractional Inspired Oxygen 28 %; Methemoglobin ABG 0.3 %THb (0-1.5); Oxygen Content ABG 13.9 %vol (16.0-22.0); Oxygen Saturation ABG 95.3 % (95.0-100.0); Oxyhemoglobin 92.3 % THb (90.0-100.0); PCO2 ABG 30.4 mmHg (35.0-45.0); PO2 ABG 65.4 mmHg (80.0-100.0); PO2 FiO2 Ratio Arterial Blood 2.34 %; Reduced Hemoglobin 7.3 %THb (0-5.0); Total Hemoglobin 10.7 g/dL (12.0-18.0)
[2021-04-09 18:14] LABS: Device NASAL CANNULA; Site Drawn RIGHT BRACHIAL
[2021-04-09] MEDS: MELATONIN 3 MG TABLET PO (20:08)
[2021-04-10] VITALS (11 sets, daily range): BP systolic 133–141; BP diastolic 57–69; PULSE 65–103; RESP 16–20; TEMP 36.8–37; O2SAT 91–96
[2021-04-10] MEDS: IPRATROPIUM BR 0.02% INH SOLN 0.5 MG/2.5 ML VIAL INHALATION ×2 (01:31→08:06)
[2021-04-10] MEDS: ALBUTEROL SULFATE NEB 2.5 MG/0.5 ML INH INHALATION ×2 (01:31→08:05)
[2021-04-10] MEDS: DOXYCYCLINE IV 100 MG in SODIUM CHLORIDE 0.9% IV 100 ML IVPB (05:30)
[2021-04-10] MEDS: LEVOTHYROXINE SODIUM 50 MCG TABLET PO (05:31)
[2021-04-10 06:13] LABS: Basophils Percent Auto 0.1 % (0.2-1.2); Eosinophils Percent Auto 0.1 % (0-4.4); Hematocrit 31.5 % (42.0-52.0); Hemoglobin 10.5 g/dL (14.0-18.0); Immature Granulocyte Absolute 0.06 K/mm3 (0.00-0.031); Immature Granulocyte Percent A 0.6 % (0-0.5); Lymphocytes Absolute Auto 0.42 K/mm3 (0.9-3.2); Lymphocytes Percent Auto 4.2 % (18.3-44.2); Mean Corpuscular HGB Conc 33.3 g/dl (32-36); Mean Corpuscular Hemoglobin 28.8 pg (26-34); Mean Corpuscular Volume 86.5 fl (80-100); Mean Platelet Volume 9.8 fl (7.4-10.4); Monocytes Absolute Auto 0.9 K/mm3 (0.1-0.6); Monocytes Percent Auto 9.1 % (2.6-8.5); Neutrophils Absolute Auto 8.5 K/mm3 (1.3-6.7); Neutrophils Percent Auto 85.9 % (45.5-73.1); Platelet Count Result 389 k/mm3 (150-375); Red Blood Count 3.64 M/mm3 (4.6-6.20); Red Cell Distribution Width 16.7 % (11.5-14.5); White Blood Count 9.9 K/mm3 (4.5-10.0)
[2021-04-10 06:40] LABS: Anion Gap 3 mmol/L (8-16); Blood Urea Nitrogen 18 mg/dL (9-20); Calcium 8.4 mg/dL (8.4-10.2); Carbon Dioxide 30 mmol/L (22-30); Chloride 104 mmol/L (98-107); Estimated CRCL calculation 73 ml/min; Estimated Glomerular Filt Rate > 60; Glucose 110 mg/dL (65-110); Magnesium 1.9 mg/dL (1.6-2.3); Potassium 3.8 mmol/L (3.4-5.0); Sodium 137 mmol/L (137-145)
[2021-04-10 08:02] LABS: Platelet Estimate Adequate (Adequate); Poikilocytosis 1+ (NORMAL)
[2021-04-10 08:03] LABS: Burr Cells 1+ (NORMAL)
[2021-04-10] MEDS: CHOLECALCIFEROL 1,000 UNITS TABLET 5000 UNITS PO (09:29)
[2021-04-10] MEDS: FINASTERIDE 5 MG TABLET PO (09:29)
[2021-04-10] MEDS: PANTOPRAZOLE 40 MG TABLET PO (09:29)
[2021-04-10] MEDS: CYANOCOBALAMIN 1,000 MCG TABLET 1000 MCG PO (09:30)
[2021-04-10] MEDS: NICOTINE (*PBKC) 21 MG PATCH 1 PATCH TRANSDERM (09:30)
[2021-04-10] MEDS: ENOXAPARIN 40 MG/0.4 ML SYRINGE SUB-Q (09:30)
[2021-04-10] MEDS: ALBUMIN HUMAN 25% 12.5 GM/50ML 50 ML IVPB (09:30)
[2021-04-10] MEDS: POTASSIUM CHLORIDE 20 MEQ TABLET 40 MEQ PO (09:32)
--- NOTE | 2021-04-10 12:13 | HOMEO2EVAL ---
Evaluation was performed at [facility] Home Oxygen Evaluation RC: Home Oxygen (O2) Evaluation Start: 04/10/21 10:02 Freq: ONCE Status: Active Protocol: RPE Activity Type Activity Date Activity User E-Sign Co-Sign Detail Recorded Client Recorded Date Recorded By Document 04/10/21 11:50 MIGUELINA [email or web address] 04/10/21 12:13 KLA Document 04/10/21 11:55 MIGUELINA [id number] 04/10/21 12:13 KLA Document 04/10/21 12:00 MIGUELINA [email or web address] 04/10/21 12:13 KLA 04/10/21 04/10/21 04/10/21 11:50 11:55 12:00 Home O2 Evaluation Test Phase Resting Exercise Resting Oxygen Delivery Room Air Room Air Room Air Pulse Oximetry (90-100 %) 94 91 95 Pulse Rate (60-100 beats/min) 78 Treatment Charges O2 Evaluation - Inpatient
--- NOTE | 2021-04-10 12:14 | PCRCNOTE ---
Home oxygen evaluation completed. Patient does not require home oxygen.
--- NOTE | 2021-04-10 12:52 | PDONCCN ---
HPI - Date of Consult Date/Time: 04/10/21 12:52 Requesting Physician: Lexie Ambriz PA-C Primary Care Provider: James Mcgregor MD - Consult Narrative Reason for consult: History of bladder cancer status post chemoradiation therapy Narrative: Song Land Jr. is a 76 year old male with history of bladder cancer diagnosed 1 and half years ago completed radiation therapy and chemotherapy in October of 2020. He has been followed by Dr. Davila. He came into the hospital with increasing shortness of breath. Chest x-ray showed moderate right-sided pleural effusion. He underwent right-sided thoracentesis with removal of once L of fluid. Fluid cytology showed suspicious cells for neoplasm. CT scan showed moderate volume of abdominal and pelvic ascites with moderate pleural effusion along with possibility of pneumonia. There was 5.2 cm cyst in the right liver lobe. His breathing has improved after thoracentesis. Other labs showed mild anemia. Denies any bleeding. No other new complaints. 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 Bladder cancer Chronic anemia Chronic GERD Chronic kidney disease Chronic obstructive pulmonary disease Decreased appetite Essential (primary) hypertension Hyperlipidemia Hypothyroidism Peritoneal carcinomatosis Pneumonia Weight loss Surgical History: Surgical History (Last Updated 04/06/21 @ 22:36 by Glory Jonas PA-C) History of colonoscopy with polypectomy History of foot surgery History of transurethral resection of prostate History of vasectomy [place] teeth extracted Family History: Family History (Last Reviewed 04/09/21 @ 21:31 by Carolynn Ram RN) Father Acute myocardial infarction Mother Acute myocardial infarction Other Alzheimer disease No family history of cancer - Social History Social History: Social History (Last Updated 04/06/21 @ 22:37 by Glory Jonas PA-C) Alcohol Use: Alcohol intake: former Drinks per week: 3 Alcohol use details: Former heavy drinker. Now drinks perhaps 3 beers a week. Substance Use: Substance use: never Substance use type: does not use Smoking Status: Smoking status: Current some day smoker Tobacco type: cigarettes Second hand tobacco smoke exposure: Yes Smoking Pack-years: Smoking packs per day: 0.5 Smoking cigarettes per day: 10.0 Years smoked: 55 Smoking pack-years: 27.50 Meds Home Medications Medication Instructions Recorded Confirmed Type finasteride 5 mg tablet 5 mg PO DAILY 12/28/19 04/06/21 History ibuprofen 200 mg PO Q6H PRN 08/09/20 04/06/21 History pantoprazole 40 mg tablet,delayed 40 mg PO DAILY #90 tablet 09/06/20 04/06/21 Rx release mecobalamin (vitamin B12) 1,000 1,000 mcg PO DAILY 09/07/20 04/06/21 History mcg chewable tablet levothyroxine 50 mcg tablet 50 mcg PO DAILY 90 Days #90 tablet 01/09/21 04/06/21 Rx cholecalciferol (vitamin D3) 125 125 mcg PO DAILY 03/03/21 04/06/21 History mcg (5,000 unit) tablet amlodipine 5 mg tablet 5 mg PO DAILY #90 tablet 03/06/21 04/06/21 Rx atorvastatin 40 mg PO QPM 03/31/21 04/06/21 History valsartan-hydrochlorothiazide 1 tablet PO DAILY 03/31/21 04/06/21 History levofloxacin 750 mg tablet 750 mg PO DAILY #10 tablet 04/04/21 04/06/21 Rx oxybutynin chloride 5 mg PO DAILY 04/06/21 04/06/21 History Allergies Allergy/AdvReac Type Severity
--- NOTE | 2021-04-10 13:02 | PM.DS ---
DS: Admitting Diagnosis Discharge Date 04/10/21 Admitting Diagnosis SOB DS: Discharge Diagnosis Discharge Diagnosis (1) Confusion: Code(s): R41.0 - Disorientation, unspecified Status: Acute Assessment and Plan: This is a 76-year-old male with history of hypertension, hypothyroidism, GERD, BPH, and bladder cancer status post chemoradiation who presented to the emergency department for evaluation of shortness of breath. About 5 days ago he developed a cough early productive of clear sputum as well as mild shortness of breath. He spoke with his primary care provider on Saturday and had a chest x-ray done at that time showing a right-sided pleural effusion as well as questionable infiltrate for which he was started on levofloxacin. His shortness of breath has continued to get worse and he came in for further evaluation. Initial labs showed hypotension at 77/45, heart rate slightly tachycardic at 100 beats per minute, afebrile, oxygenation 91% on room air. Initial labs showed leukocytosis at 15,000 with elevated neutrophils, normocytic anemia with a hemoglobin of 9.9, hematocrit 28%, normal coag panel, hyponatremia 126, severe hypokalemia at 2.1, hypomagnesemia 1.4, dehydration with a creatinine 1.1, BUN 28, BNP is 1620. Patient was found to be hypoxic and he was admitted for acute respiratory failure, in the setting of pneumonia and bilateral pleural effusions moderate in size. He was started on IV antibiotics and admitted for further evaluation. Venous dopplers negative for DVT. Status post thoracentesis yielding 1000 mL of patsy colored fluid. Gram stain showed white blood cells with no organisms. Pathology showed REACTIVE MESOTHELIAL CELLS AND ACUTE INFLAMMATION. NEGATIVE FOR MALIGNANT CELLS. NO NEED FOR FLOW CYTOMETRY. Cell count pleural RBC 6703, Nuc Cels 66230, Neutrophils 82%, which could be showing Pneumonia infection, pending culture results Echocardiogram showed normal EF, diastolic grade 1 dysfunction, moderate pulmonary hypertension CT Chest showed continued Moderate-sized pleural effusions, Near complete opacification of the right lower lobe and moderate opacification of the left lower lobe, consistent with atelectasis and pneumonia. Pleural effusions could be secondary to diastolic congestive heart failure in increased pulmonary pressure but we are waiting for results of thoracentesis labs. Pathology for thoracentesis did not show any malignant cells, only white blood cells Repeat chest x-ray yesterday showed some improvement of his pleural effusions with the diuresis. I will continue him on Lasix 40 mg daily at home. Monitor weight. Low-salt diet. Pneumonia is otherwise being treated appropriately and he is now resting comfortably at 95% on room air. We did do a home oxygen evaluation which did not showing needed any oxygen upon discharge. Will continue with 5 more days of oral antibiotics, continuation the same antibiotics he has been receiving here. Also given a probiotic to prevent any diarrhea associated with antibiotic use. Patient found to have moderate amount of abdominal ascites. GI ordered a hepatic panel which was normal. LFTs have been normal as well as coag panel. A paracentesis was done on 04/07/2021 which showed cloudy appearance of peritoneal fluid, normal neutrophil count. Pathology on the paracentesis fluid showed ATYPICAL CELLS SUSPICIOUS FOR NEOPLASM. FULL CYTOLOGIC WORKUP INCLUDING CELL BLOCK PENDING. Could be caused by a of recurrence of the patient's bladder cancer versus a metastasis Abdominal CT did not show any suspicious lymph node enlargement or masses. CEA was elevated at [address] Davila and was told to call him once he is discharged and make an appointment for follow up and further evaluation. Patient also had some confusion and concerned of possible metastatic disease to his brain. CT Brain scan with no acute intracranial findings. Chronic age-related findings
[2021-04-10] MEDS: FUROSEMIDE 40 MG TABLET PO (13:17)
[2021-04-10] MEDS: POTASSIUM CHLORIDE 20 MEQ TABLET PO (13:17)
[2021-04-10 20:50] LABS: Glucose Pleural Fluid 55 mg/dL; LDH Pleural Fluid 2162 U/L
[2021-04-10 21:56] LABS: Osmolality, Urine 526 mOsm/kg (50-1200)
[2021-04-11 17:48] LABS: Total Protein Peritoneal Fluid <3.0 g/dL
[2021-04-11 17:49] LABS: Total Protein Pleural Fluid <3.0 g/dL
[2021-04-12 10:52] LABS: Albumin Peritoneal Fluid 1.3 g/dL
[2021-04-12 10:52] LABS: Albumin Pleural Fluid 1.6 g/dL
[2021-04-12 21:20] LABS: Amylase, Pleural Fluid 13 U/L
[2021-04-15 10:24] LABS: Folic Acid 4.4 ng/mL (2.76->20)
== END 2021-04-10 14:13 | disposition home health service (06) | DRG 194 ==
LOC: ANHED 17:40 → ANH2MED 20:10
PROVIDERS: Internal Medicine Gastroenterology; Physician Assistant; Admitting Provider Internal Medicine; Emergency Provider Emergency Medicine; PCP Internal Medicine; Visit Provider Physician Assistant
DX: J18.9 Pneumonia, unspecified organism (principal); E87.1 Hypo-osmolality and hyponatremia; J90 Pleural effusion, not elsewhere classified; R18.8 Other ascites; J44.0 Chronic obstructive pulmonary disease with (acute) lower respiratory infection; C78.6 Secondary malignant neoplasm of retroperitoneum and peritoneum; C67.9 Malignant neoplasm of bladder, unspecified; R41.0 Disorientation, unspecified; E87.6 Hypokalemia; E83.42 Hypomagnesemia; R09.02 Hypoxemia; D64.9 Anemia, unspecified; E03.9 Hypothyroidism, unspecified; E88.09 Other disorders of plasma-protein metabolism, not elsewhere classified; R13.10 Dysphagia, unspecified; I13.10 Hypertensive heart and chronic kidney disease without heart failure, with stage 1 through stage 4 chronic kidney disease, or unspecified chronic kidney disease; N18.9 Chronic kidney disease, unspecified; E78.5 Hyperlipidemia, unspecified; R63.0 Anorexia; R63.4 Abnormal weight loss; Z23 Encounter for immunization; Z79.899 Other long term (current) drug therapy
CPT/HCPCS: 32555; 36415; 36600; 49083; 70450; 71045; 71046; 71250; 74177; 80048; 80074; 82040; 82042; 82150; 82274; 82375; 82378; 82465; 82570; 82607; 82728; 82746; 82805; 82945; 83050; 83540; 83550; 83605; 83615; 83735; 83880; 83930; 83935; 83986; 84132; 84155; 84157; 84295; 84300; 84311; 84443; 84466; 84478; 85025; 85610; 87040; 87070; 87075; 87205; 87804; 88104; 88108; 88184; 88305; 88342; 89051; 90471; 90653; 92610; 93005; 93306; 93970; 94618; 94640; 96361; 96365; 96375; 97110; 97116; 97161; 97165; 97530; 99285; A9270; C9803; G0008; J0696; J1200; J1630; J1650; J1940; J2060; J2405; J3475; J3480; J7030; J7120; P9047; Q9967; U0003; U0005

== ENCOUNTER 2021-04-19 10:13 | Observation (INO) | payer MEDICARE, SELFPAY ==
[2021-04-19] VITALS (59 sets, daily range): BP systolic 75–101; BP diastolic 54–81; PULSE 78–111; RESP 11–26; O2SAT 86–100
--- NOTE | ~2021-04-19 | XR_ITS ---
XR chest 1V portable DATE: 04/19/2021 10:40 INDICATION: Shortness of breath, hypoxia TECHNIQUE: Portable AP chest on 04/19/2021 at 1036 hours COMPARISON: 04/09/2021 portable AP chest at 1209 hours FINDINGS: There is patchy infiltrate and/atelectasis in the right mid and particularly right lower alicia ng zones and moderate right pleural effusion. The infiltrates in the right lung are moderately improv ed and there is interval improvement of infiltrate or atelectasis in the left lower lung since 2020. Pulmonary hyperinflation suggests COPD. No left pleural effusion. No pulmonary vascular congestion. Heart size is within normal range. There is extensive calcification of the thoracic and abdominal aorta. Bilateral rotator cuff atrophy. Diffuse osteopenia. IMPRESSION: Trimalleolar right mid and lower lung infiltrate; improvement of bilateral infiltrates si nce 04/09/2021 Right pleural effusion Reviewed, dictated and finalized at location B. RAPHY TEACHER IMPRESSION: Trimalleolar right mid and lower lung infiltrate; improvement of bi lateral infiltrates since 04/09/2021 Right pleural effusion
--- NOTE | ~2021-04-19 | US_ITS ---
EXAMINATION: US thoracentesis DATE: 04/19/2021 17:21 SHIRT HEMMER INDICATION: Right pleural effusion TECHNIQUE: Survey imaging of the right chest was performed. The procedure for ultrasound-guided thor acentesis and its risk and benefits were discussed with the patient. Risks included but were not limi jose l to pain, bleeding, pneumothorax and infection. The patient verbalized understanding and provided written consent. A time-out was performed to document the patient's name, date of , and site of procedure. The r ight chest was prepped and draped in usual sterile fashion. 1% lidocaine was used for local anesthes ia. Utilizing ultrasound guidance, a 5 anguillan cather was advanced into pleural fluid. Aspiration wa s performed. The patient tolerated procedure without immediate complication. Sterile bandages were applied over t he aspiration site(s).] FINDINGS: 1000 cc of blood-tinged fluid obtained without complication. Patient tolerated the procedur e well. IMPRESSION: 1. Successful ultrasound-guided right thoracentesis. 1000 cc of blood-tinged fluid obtained without complication. Reviewed, dictated and finalized at location A. T HEMMER IMPRESSION: 1. Successful ultrasound-guided right thoracentesis. 1000 cc of blood-tinged f luid obtained without complication.
--- NOTE | ~2021-04-19 | XR_ITS ---
EXAMINATION: [id number] DATE: 04/19/2021 17:05 INDICATION: Right pleural effusion postthoracentesis TECHNIQUE: frontal view of the chest was obtained. COMPARISON: Chest radiograph dated 04/19/2021 FINDINGS: Decrease in size of a small right pleural effusion with no pneumothorax post thoracentesis. Airspace opacities in the right lower lung zone and in the left mid and upper lung zones. Scattered bilateral small calcified pulmonary nodules consistent with old granulomatous disease. Heart size is normal. Ex tensive atherosclerotic calcification throughout the aorta. IMPRESSION: 1. Decrease in size of a small right pleural effusion with no pneumothorax post thoracentesis. 2. Opacities in the right lower and left mid and upper lung zones which could represent atelectasis, pneumonia, mild pulmonary edema or some combination thereof. Reviewed, dictated and finalized at [facility]. RVISOR PICKING CREW IMPRESSION: 1. Decrease in size of a small right pleural effusion with no pneumothorax post thoracentesis. 2. Opacities in the right lower and left mid and upper lung zones which could r epresent atelectasis, pneumonia, mild pulmonary edema or some combination there of.
--- NOTE | 2021-04-19 10:18 | ED.GENADULT ---
HPI - General Adult General Chief complaint: Shortness of Breath/Dyspnea <Leann Jalloh PA-C - Last Filed: 04/19/21 20:09> Stated complaint: low O2 sats on room air <Leann Jalloh PA-C - Last Filed: 04/19/21 20:09> Time Seen by Provider: 04/19/21 10:16 <Leann Jalloh PA-C - Last Filed: 04/19/21 20:09> Source: patient and family <Leann Jalloh PA-C - Last Filed: 04/19/21 20:09> Mode of arrival: EMS <FABIO Cottrell Last Filed: 04/19/21 20:09> Limitations: no limitations <Leann Jalloh PA-C - Last Filed: 04/19/21 20:09> History of Present Illness HPI narrative: 76-year-old male with a long medical history of cancer, recently discharged from this facility. He returns today due to worsening shortness of breath, cough, anorexia, increased swelling in lower extremities. states that he is comfortable when he is just still, but with any exertion he becomes very short of breath and panicky. <Leann Jalloh PA-C - Last Filed: 04/19/21 20:09> Related Data Home medications: Home Medications Medication Instructions Recorded Confirmed finasteride 5 mg tablet 5 mg PO DAILY 12/28/19 04/20/21 ibuprofen 200 mg PO Q6H PRN 08/09/20 04/20/21 mecobalamin (vitamin B12) 1,000 1,000 mcg PO DAILY 09/07/20 04/20/21 mcg chewable tablet cholecalciferol (vitamin D3) 125 125 mcg PO DAILY 03/03/21 04/20/21 mcg (5,000 unit) tablet atorvastatin 40 mg PO QPM 03/31/21 04/20/21 oxybutynin chloride 5 mg PO DAILY 04/06/21 04/20/21 amlodipine 5 mg PO DAILY 04/20/21 04/20/21 <FABIO Cottrell Last Filed: 04/19/21 20:09> Allergies/adverse reactions: Allergies Allergy/AdvReac Type Severity Reaction Status Date / Time triprolidine Allergy Intermediate Unknown Verified 04/06/21 15:28 pseudoephedrine AdvReac Mild shortness Verified 04/06/21 15:28 of breathe <Leann Jalloh PA-C - Last Filed: 04/19/21 20:09> Review of Systems Review of Systems: All systems reviewed & are unremarkable except as noted in HPI and below <Leann Jalloh PA-C - Last Filed: 04/19/21 20:09> [facility] Past Medical History Medical History: Medical History (Updated 04/19/21 @ 17:45 by Mikala Good NP) Acute respiratory failure with hypoxemia Ascites Benign prostatic hyperplasia 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 Bladder cancer Chronic anemia Chronic GERD Chronic kidney disease Chronic obstructive pulmonary disease Confusion Decreased appetite Dysphagia Essential (primary) hypertension Hyperlipidemia Hypothyroidism Peritoneal carcinomatosis Pneumonia Weight loss <Leann Jalloh PA-C - Last Filed: 04/19/21 20:09> Surgical History Surgical History: Surgical History History of colonoscopy with polypectomy History of foot surgery History of transurethral resection of prostate History of vasectomy [place] teeth extracted <Leann Jalloh PA-C - Last Filed: 04/19/21 20:09> Family History Family History: Family History (Updated 04/19/21 @ 17:24 by Mikala Good NP) Father Acute myocardial infarction Mother Acute myocardial infarction Alzheimer's dementia Other Alzheimer disease No family history of cancer <Leann Jalloh PA-C - Last Filed: 04/19/21 20:09> Social History Social History: Social History (Updated 04/19/21 @ 17:41 by Mikala Good NP) Social History: Surrogate decision maker: [facility]. The patient has 1 child. He quit smoking recently He does not use any marijuana or illicit drugs. He is retired. Code status: Full code. Smoking packs per day: 0.5 Smoking cigarettes per day: 10.0 Years smoked: 55 Smoking pack-years: 27.50 Smoking status: Current some day smoker Tobacco type: cigarettes Second hand toba
--- NOTE | 2021-04-19 10:24 | ECG_ITS ---
Measurements Intervals [place] Rate: 94 P: 49 IN: 140 QRS: 43 QRSD: 89 T: 49 QT: 366 QTc: 459 Interpretive Statements SINUS RHYTHM WITH SINUS ARRHYTHMIA INCOMPLETE RIGHT BUNDLE BRANCH BLOCK LOW QRS VOLTAGE IN LIMB LEADS BASELINE ARTIFACT- I, II, III, AVR, AVL, AVF, V3-V6 BORDERLINE ECG Electronically Signed On 04-19-2021 10:44:22 RESEARCH AND DEVELOPMENT MANAGER by Babar Kaufman D.O.
[2021-04-19] MEDS: SODIUM CHLORIDE 0.9% IV 1,000 ML 999 ML IV CONT (10:29)
[2021-04-19 12:08] LABS: Alanine Aminotransferase 29 U/L (4-50); Albumin Level 2.9 g/dL (3.5-5.1); Alkaline Phosphatase 99 U/L (38-126); Anion Gap 11 mmol/L (8-16); Aspartate Amino Transferase 47 U/L (17-59); Bilirubin,Total 0.7 mg/dL (0.2-1.3); Blood Urea Nitrogen 25 mg/dL (9-20); Calcium 8.6 mg/dL (8.4-10.2); Carbon Dioxide 21 mmol/L (22-30); Chloride 106 mmol/L (98-107); Estimated CRCL calculation 37 ml/min; Estimated Glomerular Filt Rate > 60; Glucose 106 mg/dL (65-110); Potassium 3.9 mmol/L (3.4-5.0); Sodium 138 mmol/L (137-145)
[2021-04-19 12:14] LABS: Basophils Percent Auto 0.1 % (0.2-1.2); Hemoglobin 10.3 g/dL (14.0-18.0); Immature Granulocyte Absolute 0.14 K/mm3 (0.00-0.031); Immature Granulocyte Percent A 0.8 % (0-0.5); Lymphocytes Percent Auto 1.2 % (18.3-44.2); Mean Corpuscular HGB Conc 33.2 g/dl (32-36); Mean Corpuscular Hemoglobin 28.6 pg (26-34); Mean Corpuscular Volume 86.1 fl (80-100); Mean Platelet Volume 9.9 fl (7.4-10.4); Monocytes Absolute Auto 0.7 K/mm3 (0.1-0.6); Monocytes Percent Auto 3.9 % (2.6-8.5); Neutrophils Absolute Auto 16.4 K/mm3 (1.3-6.7); Platelet Count Result 473 k/mm3 (150-375); Red Cell Distribution Width 17.1 % (11.5-14.5); White Blood Count 17.4 K/mm3 (4.5-10.0)
[2021-04-19 13:16] LABS: Acanthocytes 1+ (NORMAL); Burr Cells 2+ (NORMAL); Platelet Estimate Increased (Adequate); Poikilocytosis 1+ (NORMAL); Schistocytes 1+ (NORMAL)
[2021-04-19] MEDS: SODIUM CHLORIDE 0.9% IV 1,000 ML 125 ML IV CONT ×2 (13:54→22:55)
[2021-04-19 14:27] LABS: Add Urine Microscopic? YES; Appearance Urine Clear (Clear); Bilirubin Urine Negative (Negative); Blood Urine Negative (Negative); Color Urine Yellow (Yellow); Glucose Urine UA Negative (Negative); Ketones Urine Negative (Negative); Leukocyte Esterase Ur Negative LEU/UL (Negative); Mucus Urine Few /lpf; Nitrate Urine Negative (Negative); Protein Urine 1+ mg/dL (Negative); RBC Urine 0-2 /hpf (0-2); Specific Grav Ur 1.019 (1.001-1.035); Squamous Epithelial Cell Urine Rare /hpf (Few); Urobilinogen Urine Negative mg/dL (<2.0)
[2021-04-19 14:28] LABS: INR 1.2; Prothrombin Time 14.7 Seconds (11.1-14.7)
--- NOTE | 2021-04-19 14:35 | PM.IMHP ---
H&P: HPI History of Present Illness Date/Time: 04/19/21 14:35 this is a 76-year-old male patient who had a history of bladder cancer. The patient was recently discharged on 04/10/2021 at that time he had a thoracentesis healing a 1000 mL patsy colored urine. The pathology showed reactive mesothelial cells. The patient also had apparent centesis on 04/07/2021 and that fluid showed atypical cells suspicious for neoplasm. Full cytology workup including cell block pending. The patient sees Dr. Scott Hines and they are waiting to discuss treatment plan. CEA was elevated at 8. The patient came in today with worsening shortness of breath cough anorexia increased swelling to lower extremities. The patient does not wear oxygen at home. He and his were requesting oxygen for home. The patient is currently on a 15 L non-rebreather. The patient and his are wanting to go home. I explained that the patient is on high-flow oxygen and is not safe for him to be discharged to home. I explained that we will need to get him evaluated for home oxygen.. The patient becomes very tachypneic with minimal exertion. The patient is a DNR. I spoke with the patient and his concerning hospice. However they are awaiting their 1st appointment with her oncologist before they decide. His blood pressure was 94/73 and 75/62 heart rate 111 in 104. His pulse ox was 89% and now was 97%. His white count is noted to be 17.4. H&H is 10.3 and 31.0 which is his baseline. The patient is being admitted for observation on 04/19/2021. Chief Complaint: Shortness of breath Review of Systems Review of Systems: All systems reviewed & are unremarkable except as noted in HPI and below Constitutional: Constitutional: Reports as per HPI and Reports no additional constitutional complaints Eyes: Eyes: Reports as per HPI and Reports no additional eye complaints ENT: Reports system reviewed and no additional complaints, except as documented and Reports Normal hearing present Cardiovascular: Cardiovascular: Reports no additional cardiovascular complaints Respiratory: Respiratory: Reports no additional respiratory complaints and Reports no additional respiratory complaints Gastrointestinal: Gastrointestinal: Reports as per HPI and Reports no additional gastrointestinal complaints Musculoskeletal: Musculoskeletal: Reports no additional musculoskeletal complaints Integumentary/Breasts: Skin/Breast: Reports system reviewed and no additional complaints, except as docu and Reports as per HPI Neurologic: Reports system reviewed and no additional complaints, except as documented, Reports as per HPI and Reports Normal hearing present Psychiatric: Psychiatric: Reports no additional psychiatric complaints and Reports as per HPI Endocrine: Endocrine: Reports no additional endocrine complaints Hematologic/Lymphatic: Hematologic/Lymphatic: Reports no additional hematologic/lymphatic complaints Allergic/Immunologic: Allergic/Immunologic: Reports no additional allergic/immunologic complaints ON LICENSE OF [facility] Past Medical History Medical History (Updated 04/19/21 @ 17:45 by Mikala Good NP) Acute respiratory failure with hypoxemia Ascites Benign prostatic hyperplasia 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 Bladder cancer Chronic anemia Chronic GERD Chronic kidney disease Chronic obstructive pulmonary disease Confusion Decreased appetite Dysphagia Essential (primary) hypertension Hyperlipidemia Hypothyroidism Peritoneal carcinomatosis Pneumonia Weight loss Surgical History Surgical History History of colonoscopy with polypectomy History of foot surgery History of transurethral resection of prostate History of vasectomy [place] teeth extracted Family History Family History (Updated 04/19/21 @ 17:24 by Mikala Good NP) Carol
--- NOTE | 2021-04-19 16:54 | PC.NURSE ---
Gave report to Sheba REIS no further questions or concerns
[2021-04-19 18:15] LABS: Alveolar/Arterial O2 Gradient 242.7 mmHg; Base Excess ABG -2.6 mEq/l (+/-2.0); Fractional Inspired Oxygen 48 %; HCO3 ABG 20.7 mEq/l (22.0-26.0); Oxygen Content ABG 13.8 %vol (16.0-22.0); Oxygen Saturation ABG 93.7 % (95.0-100.0); Oxyhemoglobin 89.6 % THb (90.0-100.0); PCO2 ABG 30.9 mmHg (35.0-45.0); PO2 ABG 64.6 mmHg (80.0-100.0); PO2 FiO2 Ratio Arterial Blood 1.35 %; Total Hemoglobin 10.9 g/dL (12.0-18.0); pH ABG 7.444 (7.350-7.450)
[2021-04-19 18:16] LABS: Device HIGH FLOW NASAL CANN; Modified Allen's Test Pass; Site Drawn RIGHT RADIAL
--- NOTE | 2021-04-19 18:55 | PC.NURSE ---
Called pharmcacy regarding albumin, she states that no one is able to run it up at this time they will ring it during the run, should be shortly
--- NOTE | 2021-04-19 18:58 | PCCCNOTE ---
Addendum entered by Jordyn Evans RN 04/19/21 20:53: Amelia from [facility] has met with the patient and at bedside. Per Amelia they do not want to sign consents juanis. Want to wait till oncology appt on , and [facility] to call them on the to follow up. Original Note: Called down to ER to talk with patient and family about hospice. Spoke with provider who has discussed with patient. Met with patient at bedside and his Debbie. Explained hospice and patient understands but wants to make sure that his Debbie is okay with it. Debbie verbalizes understanding and agrees for Quality Liaison to contact [facility] for referral. Called to Ash at [facility] and provided details will fax over facesheet, h/p and order. Ash will contact airborne operations manager team and will contact back.
[2021-04-19] MEDS: MIDODRINE HCL 2.5 MG TABLET PO (19:43)
[2021-04-19] MEDS: ALBUMIN HUMAN 25% 25 GM/100 ML 100 ML IVPB (21:11)
--- NOTE | 2021-04-19 21:46 | PC.NURSE ---
attempted to call report to 2 med surg will not except pt due to low bp
--- NOTE | 2021-04-19 22:46 | PC.NURSE ---
ERP Dr. Hunter at bedside to have a conversation about the possibility of requiring a Central Line and higher level of care during the duration of his stay here.
[2021-04-20] VITALS (37 sets, daily range): BP systolic 92–145; BP diastolic 66–79; PULSE 72–104; RESP 10–34; TEMP 36.6–37; O2SAT 11–99; BMI 20.3
--- NOTE | 2021-04-20 02:09 | PC.NURSE ---
called into room wanted to know where his was, informed she went home. no change in status waiting admission
--- NOTE | 2021-04-20 04:08 | PC.NURSE ---
attempted to call report to imu nurse will call back
--- NOTE | 2021-04-20 06:14 | ADMGEN ---
This patient, Song Land Jr., was admitted to IMU Room 206-02. Patient/family oriented to hospital policies and general routines including ID bracelet, bed and alarms, visiting hours, pain management, procedures, bathroom and other care routines, personal items, smoking policy, room service/diet, and visiting hours. Information on how to activate the Rapid Response Team has been discussed. Patient/Family are encouraged to report perceived risks to care and to ask questions if they do not understand what they are told or what they should do.
[2021-04-20 06:48] LABS: Basophils Percent Auto 0.1 % (0.2-1.2); Hematocrit 32.1 % (42.0-52.0); Hemoglobin 10.5 g/dL (14.0-18.0); Immature Granulocyte Absolute 0.11 K/mm3 (0.00-0.031); Immature Granulocyte Percent A 0.8 % (0-0.5); Lymphocytes Absolute Auto 0.41 K/mm3 (0.9-3.2); Mean Corpuscular HGB Conc 32.7 g/dl (32-36); Mean Corpuscular Hemoglobin 28.2 pg (26-34); Mean Corpuscular Volume 86.1 fl (80-100); Mean Platelet Volume 10.2 fl (7.4-10.4); Monocytes Absolute Auto 0.7 K/mm3 (0.1-0.6); Monocytes Percent Auto 5.3 % (2.6-8.5); Neutrophils Absolute Auto 12.4 K/mm3 (1.3-6.7); Neutrophils Percent Auto 90.8 % (45.5-73.1); Platelet Count Result 475 k/mm3 (150-375); Red Blood Count 3.73 M/mm3 (4.6-6.20); Red Cell Distribution Width 17.1 % (11.5-14.5); White Blood Count 13.7 K/mm3 (4.5-10.0)
[2021-04-20 06:49] LABS: Lactic Acid Reflex 1.2 mmol/L (0.7-2.1)
[2021-04-20 07:06] LABS: Anion Gap 9 mmol/L (8-16); Blood Urea Nitrogen 23 mg/dL (9-20); CRP 17.4 mg/dL (<1.0); Calcium 9.1 mg/dL (8.4-10.2); Carbon Dioxide 23 mmol/L (22-30); Chloride 109 mmol/L (98-107); Estimated CRCL calculation 40 ml/min; Estimated Glomerular Filt Rate > 60; Glucose 92 mg/dL (65-110); Lactate Dehydrogenase 734 U/L (313-618); Magnesium 1.8 mg/dL (1.6-2.3); Potassium 4.2 mmol/L (3.4-5.0); Sodium 141 mmol/L (137-145)
[2021-04-20 07:54] LABS: Free T4 Free Thyroxine Reflex 1.08 ng/dL (0.78-2.19)
[2021-04-20 08:50] LABS: Total Triiodothyronine (T3) 0.46 NG/ML (0.97-1.69)
[2021-04-20] MEDS: MIDODRINE HCL 2.5 MG TABLET PO ×2 (09:55→12:52)
[2021-04-20] MEDS: LEVOTHYROXINE SODIUM 50 MCG TABLET PO (13:46)
--- NOTE | 2021-04-20 15:49 | HOMEO2EVAL ---
Evaluation was performed at [facility] Home Oxygen Evaluation RC: Home Oxygen (O2) Evaluation Start: 04/19/21 14:40 Freq: ONCE Status: Active Protocol: RPE Activity Type Activity Date Activity User E-Sign Co-Sign Detail Recorded Client Recorded Date Recorded By Document 04/20/21 15:10 MIGUELINA [id number] 04/20/21 15:49 MIGUELINA Document 04/20/21 15:11 MIGUELINA [email or web address] 04/20/21 15:49 MIGUELINA Document 04/20/21 15:12 MIGUELINA [email or web address] 04/20/21 15:49 MIGUELINA Document 04/20/21 15:13 MIGUELINA [email or web address] 04/20/21 15:49 MIGUELINA Document 04/20/21 15:20 MIGUELINA [email or web address] 04/20/21 15:49 MIGUELINA Document 04/20/21 15:21 MIGUELINA [email or web address] 04/20/21 15:49 MIGUELINA Document 04/20/21 15:22 MIGUELINA [email or web address] 04/20/21 15:49 MIGUELINA Document 04/20/21 15:30 MIGUELINA [email or web address] 04/20/21 15:49 MIGUELINA 04/20/21 04/20/21 04/20/21 15:10 15:11 15:12 Home O2 Evaluation Test Phase Resting Resting Resting Oxygen Delivery Room Air Nasal Cannula Nasal Cannula Oxygen Flow Rate (L/min) 1 2 Pulse Oximetry (90-100 %) 87 L 87 L 87 L Home Oxygen Evaluation Comments Treatment Charges O2 Evaluation - Inpatient 04/20/21 04/20/21 04/20/21 15:13 15:20 15:21 Home O2 Evaluation Test Phase Resting Exercise Exercise Oxygen Delivery Nasal Cannula Nasal Cannula Nasal Cannula Oxygen Flow Rate (L/min) 3 3 4 Pulse Oximetry (90-100 %) 95 87 L 87 L Home Oxygen Evaluation Comments Treatment Charges 04/20/21 04/20/21 15:22 15:30 Home O2 Evaluation Test Phase Exercise Resting Oxygen Delivery Nasal Cannula Nasal Cannula Oxygen Flow Rate (L/min) 5 3 Pulse Oximetry (90-100 %) 90 94 Home Oxygen Evaluation Comments PT REQUIRES 3 L REST AND 5 L WITH ACTIVITY Treatment Charges
--- NOTE | 2021-04-20 15:57 | PDONCCN ---
HPI - Date of Consult Date/Time: 04/20/21 15:57 Requesting Physician: Timothy Beckman MD Primary Care Provider: James Mcgregor MD - Consult Narrative Narrative: Song Land Jr. is a 76 year old male with known bladder cancer s/p soncurrent chemo-radiation ay [facility] with his second admission for Right sided pleural effusion- CT also shows lung lesions which are suspiciuos foe metastatic lesions as well as ascites. He is scheduled to see his Oncologist Dr Davila . 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 Bladder cancer Chronic anemia Chronic GERD Chronic kidney disease Chronic obstructive pulmonary disease Confusion Decreased appetite Dysphagia Essential (primary) hypertension Hyperlipidemia Hypothyroidism Peritoneal carcinomatosis Pneumonia Weight loss Surgical History: Surgical History (Last Reviewed 04/19/21 @ 17:22 by Mikala Good NP) History of colonoscopy with polypectomy History of foot surgery History of transurethral resection of prostate History of vasectomy [place] teeth extracted Family History: Family History (Last Updated 04/19/21 @ 17:24 by Mikala Good NP) Father Acute myocardial infarction Mother Acute myocardial infarction Alzheimer's dementia Other Alzheimer disease No family history of cancer - Social History Social History: Social History (Last Updated 04/19/21 @ 17:41 by Mikala Good NP) Alcohol Use: Alcohol intake: unknown Drinks per week: 3 Alcohol use details: Former heavy drinker. Now drinks perhaps 3 beers a week. Substance Use: Substance use: unknown Substance use type: does not use Others: Spiritual care concerns: No Smoking Status: Smoking status: Current some day smoker Tobacco type: cigarettes Second hand tobacco smoke exposure: Yes Smoking Pack-years: Smoking packs per day: 0.5 Smoking cigarettes per day: 10.0 Years smoked: 55 Smoking pack-years: 27.50 Meds Home Medications Medication Instructions Recorded Confirmed Type finasteride 5 mg tablet 5 mg PO DAILY 12/28/19 04/20/21 History ibuprofen 200 mg PO Q6H PRN 08/09/20 04/20/21 History pantoprazole 40 mg tablet,delayed 40 mg PO DAILY #90 tablet 09/06/20 04/20/21 Rx release mecobalamin (vitamin B12) 1,000 1,000 mcg PO DAILY 09/07/20 04/20/21 History mcg chewable tablet levothyroxine 50 mcg tablet 50 mcg PO DAILY 90 Days #90 tablet 01/09/21 04/20/21 Rx cholecalciferol (vitamin D3) 125 125 mcg PO DAILY 03/03/21 04/20/21 History mcg (5,000 unit) tablet atorvastatin 40 mg PO QPM 03/31/21 04/20/21 History oxybutynin chloride 5 mg PO DAILY 04/06/21 04/20/21 History Saccharomyces boulardii [Florastor] 250 mg PO BID 7 Days #14 cap 04/10/21 04/20/21 Rx furosemide [Lasix] 40 mg PO DAILY #30 tablet 04/10/21 04/20/21 Rx potassium chloride 20 meq PO DAILY #30 tablet 04/10/21 04/20/21 Rx valsartan 80 mg PO DAILY #30 tablet 04/10/21 04/20/21 Rx amlodipine 5 mg PO DAILY 04/20/21 04/20/21 History Allergies Allergy/AdvReac Type Severity Reaction Status Date / Time triprolidine Allergy Intermediate Unknown Verified 04/06/21 15:28 pseudoephedrine AdvReac Mild shortness Verified 04/06/21 15:28 of breathe Results - Labs CBC & Chem 7: 04/20/21 06:27 04/20/21 06:27 Labs: Short CBC 04/20/21 Range/Units 06
--- NOTE | 2021-04-20 16:07 | PCRCNOTE ---
SET UP WITH [facility]. WILL DROP OFF TANK FOR TRANSPORT HOME SHANIA
--- NOTE | 2021-04-20 17:25 | PM.IMPN ---
Progress Note: A&P Assessment and Plan (1) Malignant pleural effusion: Code(s): J91.0 - Malignant pleural effusion Status: Acute Assessment and Plan: Today the patient had a successful ultrasound right thoracentesis that yielded a 1000 cc of blood tinged fluid that was obtained without complications. The patient is currently on oxygen at 5 L per nasal cannula. The patient is wanting to be evaluated for home oxygen. The patient's blood pressure dropped after the thoracentesis there for albumin and midodrine have been started. Patient continues with IV fluids. ABGs have been ordered. The patient is a DNR. The patient was started on Zosyn. (2) Diastolic heart failure, NYHA class 1: Code(s): I50.30 - Unspecified diastolic (congestive) heart failure Status: Acute Assessment and Plan: Hold Lasix for now as his blood pressure is low. Patient started on midodrine for BP support. (3) Chronic anemia: Code(s): D64.9 - Anemia, unspecified Status: Acute Assessment and Plan: Continue to monitor H&H appears to be at the baseline. (4) Benign prostatic hyperplasia: Code(s): N40.0 - Benign prostatic hyperplasia without lower urinary tract symptoms Status: Acute Assessment and Plan: Continue with finasteride. (5) Pleural effusion: Code(s): J90 - Pleural effusion, not elsewhere classified Status: Acute Assessment and Plan: The patient has a thoracentesis today. (6) Tobacco use disorder: Code(s): F17.200 - Nicotine dependence, unspecified, uncomplicated Status: Acute Assessment and Plan: Patient recently stopped smoking. (7) COPD (chronic obstructive pulmonary disease): Qualifiers: COPD type: emphysema Emphysema type: unspecified Qualified Code(s): J43.9 - Emphysema, unspecified Code(s): J44.9 - Chronic obstructive pulmonary disease, unspecified Status: Acute Assessment and Plan: Continue with inhalers (8) Hypothyroidism (acquired): Code(s): E03.9 - Hypothyroidism, unspecified Status: Acute Assessment and Plan: Continue with thyroid medicine. (9) Mixed hyperlipidemia: Code(s): E78.2 - Mixed hyperlipidemia Status: Acute Assessment and Plan: Continue with home medications. (10) Essential (primary) hypertension: Code(s): I10 - Essential (primary) hypertension Status: Chronic Assessment and Plan: Hold hypertensive medication as the patient's blood pressure is low at this time. Patient started on Malarone for BP support. Subjective Date/time seen: 04/20/21 09:25 S: Patient examined at the bedside. He is feeling better after the thoracentesis. He is anxious to go home. Patient is scheduled to see Dr. Davila from Oncology. Review of Systems Review of Systems: All systems reviewed & are unremarkable except as noted in HPI and below Constitutional: Constitutional: Reports as per HPI and Reports no additional constitutional complaints Eyes: Eyes: Reports as per HPI and Reports no additional eye complaints ENT: Reports system reviewed and no additional complaints, except as documented and Reports Normal hearing present Cardiovascular: Cardiovascular: Reports no additional cardiovascular complaints Respiratory: Respiratory: Reports no additional respiratory complaints and Reports no additional respiratory complaints Gastrointestinal: Gastrointestinal: Reports as per HPI and Reports no additional gastrointestinal complaints Musculoskeletal: Musculoskeletal: Reports no additional musculoskeletal complaints Integumentary/Breasts: Skin/Breast: Reports system reviewed and no additional complaints, except as docu and Reports as per HPI Neurologic: Reports system reviewed and no additional complaints, except as documented, Reports as per HPI and Reports Normal hearing present Psychiatric: Psychiatric: Reports no additional psychia
--- NOTE | 2021-04-20 17:26 | PM.DS ---
DS: Admitting Diagnosis Discharge Date 04/20/2021 Admitting Diagnosis (1) Malignant pleural effusion: (2) Diastolic heart failure, NYHA class 1: (3) Chronic anemia: (4) Benign prostatic hyperplasia: (5) Pleural effusion: (6) Tobacco use disorder: (7) COPD (chronic obstructive pulmonary disease): (8) Hypothyroidism (acquired): (9) Mixed hyperlipidemia: (10) Essential (primary) hypertension: (11)Hypotension DS: Discharge Diagnosis Discharge Diagnosis (1) Malignant pleural effusion: Code(s): J91.0 - Malignant pleural effusion Status: Acute Assessment and Plan: Today the patient had a successful ultrasound right thoracentesis that yielded a 1000 cc of blood tinged fluid that was obtained without complications. The patient is currently on oxygen at 5 L per nasal cannula. The patient is wanting to be evaluated for home oxygen. The patient's blood pressure dropped after the thoracentesis there for albumin and midodrine have been started. Patient continues with IV fluids. ABGs have been ordered. The patient is a DNR. The patient was started on Zosyn. (2) Diastolic heart failure, NYHA class 1: Code(s): I50.30 - Unspecified diastolic (congestive) heart failure Status: Acute Assessment and Plan: Hold Lasix for now as his blood pressure is low. Patient started on midodrine for BP support. (3) Chronic anemia: Code(s): D64.9 - Anemia, unspecified Status: Acute Assessment and Plan: Continue to monitor H&H appears to be at the baseline. (4) Benign prostatic hyperplasia: Code(s): N40.0 - Benign prostatic hyperplasia without lower urinary tract symptoms Status: Acute Assessment and Plan: Continue with finasteride. (5) Pleural effusion: Code(s): J90 - Pleural effusion, not elsewhere classified Status: Acute Assessment and Plan: The patient has a thoracentesis today. (6) Tobacco use disorder: Code(s): F17.200 - Nicotine dependence, unspecified, uncomplicated Status: Acute Assessment and Plan: Patient recently stopped smoking. (7) COPD (chronic obstructive pulmonary disease): Qualifiers: COPD type: emphysema Emphysema type: unspecified Qualified Code(s): J43.9 - Emphysema, unspecified Code(s): J44.9 - Chronic obstructive pulmonary disease, unspecified Status: Acute Assessment and Plan: Continue with inhalers (8) Hypothyroidism (acquired): Code(s): E03.9 - Hypothyroidism, unspecified Status: Acute Assessment and Plan: Continue with thyroid medicine. (9) Mixed hyperlipidemia: Code(s): E78.2 - Mixed hyperlipidemia Status: Acute Assessment and Plan: Continue with home medications. (10) Essential (primary) hypertension: Code(s): I10 - Essential (primary) hypertension Status: Chronic Assessment and Plan: Hold hypertensive medication as the patient's blood pressure is low at this time. Patient started on Malarone for BP support. DS: Summary Hospital Course Reason for hospitalization: Shortness of breath. Hospital Course: Please refer to admission H& P. Briefly,this is a 76-year-old male patient who had a history of bladder cancer. The patient was recently discharged on 04/10/2021 at that time he had a thoracentesis healing a 1000 mL patsy colored urine. The pathology showed reactive mesothelial cells. The patient also had apparent centesis on 04/07/2021 and that fluid showed atypical cells suspicious for neoplasm. Full cytology workup including cell block pending. The patient sees Dr. Davila and they are waiting to discuss treatment plan. CEA was elevated at 8. The patient came in yesterday with worsening shortness of breath cough anorexia increased swelling to lower extremities. The patient does not wear oxygen at home. He and his were requesting oxygen for home. The patient is currently on a 15 L non-rebreather. The
== END 2021-04-20 17:33 | disposition home or self-care (01) ==
LOC: ANHED 13:06 → ANH2MED 16:52 → ANHIMU 04-20 09:00 → ANH3MEDSUR 04-21 11:45 → ANHIMU 04-21 11:45
PROVIDERS: Nurse Practitioner; Physician Assistant; Admitting Provider Internal Medicine; Emergency Provider General Practice; PCP Internal Medicine; Visit Provider Internal Medicine
DX: I11.0 Hypertensive heart disease with heart failure (principal); I50.30 Unspecified diastolic (congestive) heart failure; J91.0 Malignant pleural effusion; R09.02 Hypoxemia; C67.9 Malignant neoplasm of bladder, unspecified; R06.02 Shortness of breath; J44.9 Chronic obstructive pulmonary disease, unspecified; D64.9 Anemia, unspecified; E78.2 Mixed hyperlipidemia; E03.9 Hypothyroidism, unspecified; K21.9 Gastro-esophageal reflux disease without esophagitis; N40.0 Benign prostatic hyperplasia without lower urinary tract symptoms; F17.210 Nicotine dependence, cigarettes, uncomplicated; Z79.51 Long term (current) use of inhaled steroids; Z85.51 Personal history of malignant neoplasm of bladder; Z92.21 Personal history of antineoplastic chemotherapy; Z92.3 Personal history of irradiation; Z66 Do not resuscitate
CPT/HCPCS: 32555; 36415; 36600; 71045; 80048; 80053; 81001; 82728; 82805; 83605; 83615; 83735; 84439; 84443; 84480; 85025; 85610; 86140; 87040; 93005; 94618; 96361; 96365; 96366; 96367; 96376; 99285; A9270; G0378; J2543; J7030; P9047